=== PATIENT | female | born 1945 | race Caucasian/White ===

== ENCOUNTER 2017-01-25 20:13 | Inpatient (IN) | payer MEDICARE, OTHER ==
[~2017-01-25] VITALS: Ht 165.1 cm; Wt 98.1 kg
[~2017-01-25 20:13] MED LIST: AZIL1TAB2 PO; NABU750T PO; PARO20TA3 PO; PIOG30TA3 PO; TRIA1CAP3 PO
[2017-01-25 20:30] VITALS: BP 141/76
[2017-01-25 20:49] VITALS: BP 141/76
--- NOTE | 2017-01-25 20:52 | PDOC ---
GENERAL General: see dictated H&P. Problems: VITAL SIGNS Vital Signs: Vital Signs Date Time Temp Pulse Resp B/P (MAP) Pulse Ox O2 Delivery O2 Flow Rate FiO2 01/25/17 20:49 97.9 109 18 141/76 (97) 95 Room Air 97.9 ALLERGIES Allergies: Allergies Coded Allergies Type Severity Reaction Last Updated Verified Iodinated Contrast Media - Oral and Allergy Severe 12/31/13 Yes Uncoded Allergies Type Severity Reaction Last Updated Verified bandaids Allergy Unknown 11/12/14 ELIZABETH MEHTA MD January 25, 2017 20:52
[2017-01-25] MEDS ORDERED: CALCIUM CARBONATE 500 MG TAB.CHEW PO PRN (21:15)
[2017-01-25] MEDS ORDERED: ONDANSETRON PF 4 MG/2 ML VIAL. IV PRN (21:15)
[2017-01-25] MEDS: ONDANSETRON ODT 4 MG TAB.RAPDIS. PO PRN (21:31)
[2017-01-25 21:42] LABS: BASO % 0 % (0-3); EOS % 0 % (0-3); HEMATOCRIT 41.6 % (36.0-47.0); HEMOGLOBIN 14.1 g/dL (12.0-15.5); LYMPH # 0.4 x10^3/uL (1.0-4.8); LYMPH % 2 % (24-48); MEAN CORPUSCULAR HEMOGLOBIN 32 pg (25-35); MEAN CORPUSCULAR HGB CONC 34 g/dL (31-37); MEAN CORPUSCULAR VOLUME 95 fL (79-100); MONO % 5 % (0-9); NEUT % 93 % (31-73); PLATELET COUNT 223 x10^3/uL (140-400); WHITE BLOOD COUNT 23.7 x10^3/uL (4.0-11.0)
[2017-01-25 21:58] LABS: ALBUMIN 2.6 g/dL (3.4-5.0); ALBUMIN/GLOBULIN RATIO 0.6 (1.0-1.7); CALCIUM 8.8 mg/dL (8.5-10.1); CREATININE 1.6 mg/dL (0.6-1.0); GFR 31.9; TOTAL BILIRUBIN 0.6 mg/dL (0.2-1.0); TOTAL PROTEIN 7.1 g/dL (6.4-8.2)
[2017-01-25 22:11] LABS: POTASSIUM 2.6 mmol/L (3.5-5.1)
[2017-01-25 22:17] LABS: PLT ESTIMATE ADEQUATE (ADEQUATE)
[2017-01-25 22:18] LABS: TOXIC GRANULATION SLIGHT
[2017-01-25 22:44] LABS: BILIRUBIN,URINE SMALL (NEG); GLUCOSE,URINE NEGATIVE (NEG); NITRITE,URINE NEGATIVE (NEG); PH,URINE 5.5; PROTEIN,URINE 100 mg/dL (NEG-TRACE); UROBILINOGEN,URINE 0.2 mg/dL (0.2 mg/dL)
[2017-01-25 22:53] LABS: BACTERIA,URINE MANY /HPF (0-FEW); RBC,URINE 0 /HPF (0-2); SQUAMOUS EPITHELIAL CELL,UR FEW /LPF
[2017-01-25 23:00] VITALS: BP 122/59
[2017-01-25] MEDS ORDERED: IV 1/2 NORMAL SALINE 1,000 ML IV SCH (23:00)
[2017-01-26] MEDS: POTASSIUM CHLORIDE 40 MEQ in IV 1/2 NORMAL SALINE 1,000 ML IV SCH ×3 (02:14→19:52)
[2017-01-26 03:00] VITALS: BP 130/63
[2017-01-26 05:11] LABS: CALCIUM 8.5 mg/dL (8.5-10.1); CREATININE 1.6 mg/dL (0.6-1.0); GFR 31.9
[2017-01-26 05:14] LABS: POTASSIUM 2.9 mmol/L (3.5-5.1)
[2017-01-26] MEDS: ONDANSETRON ODT 4 MG TAB.RAPDIS. PO PRN (06:33)
[2017-01-26 07:39] VITALS: BP 126/74
[2017-01-26] MEDS ORDERED: VANCOMYCIN 1.25 GM in IV NORMAL SALINE 250ML 250 ML IV ONE (08:30)
[2017-01-26] MEDS: TRIAMTERENE/HCTZ 37.5/25MG TABLET. PO SCH (08:52)
[2017-01-26] MEDS: PIOGLITAZONE 15 MG TABLET. PO SCH (08:53)
[2017-01-26 10:34] VITALS: BP 128/77
--- NOTE | 2017-01-26 10:55 | PDOC ---
Infectious Disease Note ROS ROS GEN: Denies fevers, chills, sweats HEENT: Denies blurred vision, sore throat CV: Denies chest pain RESP: Denies shortness of air, cough GI: Denies n/v/d NEURO: Denies confusion, dizziness MSK: Denies weakness, joint pain/swelling Vital Sign Vital Signs Vital Signs Date Time Temp Pulse Resp B/P (MAP) Pulse Ox O2 Delivery O2 Flow Rate FiO2 01/26/17 08:00 Room Air 01/26/17 07:39 100.4 111 18 126/74 (91) 96 100.4 Physical Exam PHYSICAL EXAM GENERAL: NAD, Alert HEENT: PERRL, OC/OP NECK: Supple, no JVD, no LN LUNGS: Clear HEART: S1S2, no gallop, no murmur ABD: Soft, NT, no organomegaly, no rebound EXT: No edema, no cyanosis ROUND UP RING HAND: Alert, oriented x 3, no focal neurologic deficit SKIN: No rash IV: ok Labs Lab Laboratory Tests Test 01/25/17 21:30 01/25/17 21:31 01/25/17 22:32 01/26/17 03:45 White Blood Count 23.7 x10^3/uL (4.0-11.0) Red Blood Count 4.40 x10^6/uL (3.50-5.40) Hemoglobin 14.1 g/dL (12.0-15.5) Hematocrit 41.6 % (36.0-47.0) Mean Corpuscular Volume 95 fL (79-100) Mean Corpuscular Hemoglobin 32 pg (25-35) Mean Corpuscular Hemoglobin Concent 34 g/dL (31-37) Red Cell Distribution Width 13.0 % (11.5-14.5) Platelet Count 223 x10^3/uL (140-400) Neutrophils (%) (Auto) 93 % (31-73) Lymphocytes (%) (Auto) 2 % (24-48) Monocytes (%) (Auto) 5 % (0-9) Eosinophils (%) (Auto) 0 % (0-3) Basophils (%) (Auto) 0 % (0-3) Neutrophils # (Auto) 22.0 x10^3uL (1.8-7.7) Lymphocytes # (Auto) 0.4 x10^3/uL (1.0-4.8) Monocytes # (Auto) 1.2 x10^3/uL (0.0-1.1) Eosinophils # (Auto) 0.1 x10^3/uL (0.0-0.7) Basophils # (Auto) 0.0 x10^3/uL (0.0-0.2) Segmented Neutrophils % 57 % (35-66) Band Neutrophils % 31 % (0-9) Lymphocytes % 2 % (24-48) Monocytes % 10 % (0-10) Toxic Granulation Slight Dohle Bodies Present Platelet Estimate Adequate (ADEQUATE) Sodium Level 132 mmol/L (136-145) 134 mmol/L (136-145) Potassium Level 2.6 mmol/L (3.5-5.1) 2.9 mmol/L (3.5-5.1) Chloride Level 93 mmol/L (98-107) 94 mmol/L (98-107) Carbon Dioxide Level 26 mmol/L (21-32) 27 mmol/L (21-32) Anion Gap 13 (6-14) 13 (6-14) Blood Urea Nitrogen 24 mg/dL (7-20) 26 mg/dL (7-20) Creatinine 1.6 mg/dL (0.6-1.0) 1.6 mg/dL (0.6-1.0) Estimated GFR (Cockcroft-Gault) 31.9 31.9 BUN/Creatinine Ratio 15 (6-20) Glucose Level 173 mg/dL (70-99) 155 mg/dL (70-99) Calcium Level 8.8 mg/dL (8.5-10.1) 8.5 mg/dL (8.5-10.1) Total Bilirubin 0.6 mg/dL (0.2-1.0) Aspartate Amino Transf (AST/SGOT) 19 U/L (15-37) Alanine Aminotransferase (ALT/SGPT) 26 U/L (14-59) Alkaline Phosphatase 103 U/L (46-116) Total Protein 7.1 g/dL (6.4-8.2) Albumin 2.6 g/dL (3.4-5.0) Albumin/Globulin Ratio 0.6 (1.0-1.7) Amylase Level 28 U/L (25-115) Lipase 81 U/L (73-393) Glucose (Fingerstick) 172 mg/dL (70-99) Urine Collection Type Unknown Urine Color Margarita Urine Clarity Clear Urine pH 5.5 Urine Specific [place] 1.020 Urine Protein 100 mg/dL (NEG-TRACE) Urine Glucose (UA) Negative mg/dL (NEG) Urine Ketones (Stick) Trace mg/dL (NEG) Urine Blood Negative (NEG) Urine Nitrite Negative (NEG) Urine Bilirubin Small (NEG) Urine Urobilinogen Dipstick 0.2 mg/dL (0.2 mg/dL) Urine Leukocyte Esterase Small (NEG) Urine RBC 0 /HPF (0-2) Urine WBC 5-10 /HPF (0-4) Urine Squamous Epithelial Cells Few /LPF Urine Amorphous Sediment Present /HPF Urine Bacteria Many /HPF (0-FEW) Urine Hyaline Casts Moderate /HPF Urine Granular Casts Few /HPF Urine Mucus Mod /LPF Test 01/26/17 07:42 Glucose (Fingerstick) 155 mg/dL (70-99) Objective Assessment ? UTI Loose stool Fever Leukocytosis Pancreatic lesion Plan Plan of Care recent abx exposure - Check C-diff Add po vanc Cont IV vancZosyn F/u CT scan F/u labs and cults Thank you # [id number] MARKO CROWELL MD Jan 26, 2017 10:55
[2017-01-26 11:32] LABS: BASO % 0 % (0-3); EOS % 0 % (0-3); HEMATOCRIT 42.2 % (36.0-47.0); LYMPH # 0.7 x10^3/uL (1.0-4.8); LYMPH % 3 % (24-48); MEAN CORPUSCULAR HEMOGLOBIN 32 pg (25-35); MEAN CORPUSCULAR HGB CONC 33 g/dL (31-37); MEAN CORPUSCULAR VOLUME 96 fL (79-100); MONO % 6 % (0-9); NEUT % 91 % (31-73); PLATELET COUNT 240 x10^3/uL (140-400); RED BLOOD COUNT 4.38 x10^6/uL (3.50-5.40); RED CELL DISTRIBUTION WIDTH 13.2 % (11.5-14.5); WHITE BLOOD COUNT 24.3 x10^3/uL (4.0-11.0)
[2017-01-26] MEDS: PIPERACILLIN/TAZOBACTAM 3.375 GM in IV NORMAL SALINE 50ML 50 ML IV SCH ×3 (11:46→23:38)
[2017-01-26] MEDS: VANCOMYCIN 125 MG/2.5 ML ORAL SOLUTION. PO SCH ×3 (11:46→19:51)
[2017-01-26 12:04] LABS: ANISOCYTOSIS SLIGHT; PLT ESTIMATE ADEQUATE (ADEQUATE)
--- NOTE | 2017-01-26 13:21 | HP ---
ADMIT DATE: 01/25/2017 CHIEF COMPLAINT AND HISTORY OF PRESENT ILLNESS: This 72-year-old white female who is well known to me who follows up in the office. The patient was admitted after a week or more worth of illness which included just generalized feeling worse, fevers and chills, some respiratory symptoms early on and seen in the urgent care and started on steroids and Augmentin. She ____ continuing to feel very crummy also developing a lot of upper abdominal discomfort within the last 24 hours or so prior to admission. [place] office was [address] with a left shift and she had acute renal failure with a creatinine up to 1.661, last checked was 0.9, was felt as though she needed admission to the hospital to further evaluate what was going on with the length of the stay and no response to any sort of outpatient treatment and this was accomplished. PAST MEDICAL HISTORY: Remarkable for hypertension, depression, osteoarthritis, diabetes. She has a history of pancreatic cyst that has been deemed to be benign over followup over time. She did have an admission 3 years ago for sepsis. MEDICATIONS: Brought with the patient, listed on the computer and have been addressed. ALLERGIES: THE PATIENT IS ALLERGIC TO IODINE, BAND-AIDS. SOCIAL HISTORY: She is retired, lives at home with her , nonsmoker, does not use drugs, does not abuse alcohol. FAMILY HISTORY: Positive for cancer and diabetes. REVIEW OF SYSTEMS: As mentioned above. PHYSICAL EXAMINATION: GENERAL: She is a well-developed, well-nourished white female who appears ill. VITAL SIGNS: Stable in the office and she is afebrile. HEAD, EYES, EARS AND THROAT: Unremarkable. Some dryness of mucous membranes. NECK: Supple without adenopathy or thyromegaly. CHEST: Clear to auscultation and percussion. HEART: Slightly tachycardic without S3, S4 or murmur. ABDOMEN: Soft with diffuse epigastric tenderness, no hepatosplenomegaly or masses are appreciated. EXTREMITIES: Without cyanosis, clubbing or edema. NEUROLOGIC: She is intact. IMPRESSION: ____ as noted above with leukocytosis, acute renal failure and abdominal pain. PLAN: The patient has been admitted. Labs will be checked. CT abdomen and pelvis will be done. Infectious Disease will be asked to see her in consultation. The patient will be monitored, managed and treated appropriately. ELIZABETH MEHTA MD DR: Kelly JOB#: [id number] / [id number]
--- NOTE | 2017-01-26 13:47 | RAD ---
Indication nausea abdominal pain. Axial images through the abdomen and pelvis were obtained. Note is made of a previous examination just over 3 years ago. The lung bases are clear. No abnormality is seen associated with the liver or spleen. The gallbladder appears grossly normal. Known low-density mass with some associated calcifications at the head of the pancreas is reproduced. The mass has increased slightly in size relative to the previous exam. Previously it measured approximately 3.5 x 2.7 cm. Corresponding measurements are now approximately 4.5 x 3.5. Neoplastic disease is felt unlikely accounting for the mass given the 3 year interval but a slow-growing neoplasm cannot be entirely excluded. Additional evaluation could be obtained with MRI if clinically warranted. The adrenal glands appear unremarkable. There are punctate small calculi seen associated with the kidneys. A dominant renal mass is not seen. There are a few small retroperitoneal lymph nodes. These are likely incidental and appear similar to the previous study. There is considerable thickening involving the cecum and ascending colon. The findings are compatible with colitis. Inflammation or ischemia should be considered. The transverse colon, descending colon and sigmoid colon appear unremarkable. An additional finding in the pelvis is not seen. There are probable kyphoplasty changes associated with L1. The appearance is similar to the previous exam IMPRESSION: Findings involving the right colon compatible with colitis. Known mass associated with the head of the pancreas is likely benign but it does appear slightly larger than on the study 3 years ago.
[2017-01-26 15:05] VITALS: BP 145/76
[2017-01-26] MEDS: VANCOMYCIN PER PHARMACY MC PRN ×2 (15:46→15:51)
[2017-01-26 19:00] VITALS: BP 122/60
--- NOTE | 2017-01-26 20:41 | PDOC ---
GENERAL General: vss with tmax of 100.6. feeling even worse this am. leukocytosis of 24K with bandemia. creatinine increased to 1.6. K+ up to 2.9 with ongoing replacement. ID help appreciated. blood cultures obtained and iv antibiotics ongoing. very sick. abdomen soft, chest clear, and heart slightly tachycardic. continue same otherwise. Problems: VITAL SIGNS Vital Signs: Vital Signs Date Time Temp Pulse Resp B/P (MAP) Pulse Ox O2 Delivery O2 Flow Rate FiO2 01/26/17 15:05 98.8 117 18 145/76 (99) 97 Room Air 98.8 I & O I & O Intake and Output 01/26/17 07:00 Output Total 200 ml Balance -200 ml Output Urine Total 200 ml ALLERGIES Allergies: Allergies Coded Allergies Type Severity Reaction Last Updated Verified Iodinated Contrast Media - Oral and Allergy Severe 12/31/13 Yes Uncoded Allergies Type Severity Reaction Last Updated Verified bandaids Allergy Unknown 11/12/14 MEDS Medications: Current Medications Medications (Trade) Dose Ordered Sig/Anitra Start Time Stop Time Status Last Admin Dose Admin Calcium Carbonate/ Glycine (Tums) 500 mg PRN Q4HRS PRN 01/25/17 21:15 Ondansetron HCl (Zofran Odt) 4 mg PRN Q4HRS PRN 01/25/17 21:15 01/26/17 06:33 4 MG Ondansetron HCl (Zofran) 4 mg PRN Q4HRS PRN 01/25/17 21:15 01/26/17 13:42 4 MG Pioglitazone HCl (Actos) 30 mg DAILY 01/26/17 09:00 01/26/17 08:53 30 MG Piperacillin Sod/ Tazobactam Sod 3.375 gm/Sodium Chloride 50 ml @ 100 mls/hr Q6HRS 01/26/17 12:00 01/26/17 17:38 100 MLS/HR Potassium Chloride 40 meq/ Sodium Chloride 1,020 ml @ 100 mls/hr [id number] 01/25/17 22:30 01/26/17 17:39 100 MLS/HR Sodium Chloride 1,000 ml @ 100 mls/hr Q10H 01/25/17 23:00 01/25/17 23:00 DC Triamterene/HCTZ (Maxzide 37.5/ 25mg) 1 tab DAILY 01/26/17 09:00 01/26/17 08:52 1 TAB Vancomycin HCl 1 each 1X ONCE 01/28/17 05:30 01/28/17 05:31 Vancomycin HCl (Vanco Per Pharmacy) 1 each PRN DAILY PRN 01/26/17 15:45 01/26/17 15:51 1 EACH Vancomycin HCl 1.25 gm/Sodium Chloride 250 ml @ 166.667 mls/hr 1X ONCE 01/26/17 08:30 01/26/17 09:59 DC 01/26/17 09:53 166.667 MLS/HR Vancomycin HCl 1.5 gm/Sodium Chloride 500 ml @ 250 mls/hr Q24H 01/27/17 06:00 LAB Lab: Laboratory Tests Test 01/25/17 21:30 01/25/17 21:31 01/25/17 22:32 01/26/17 03:45 White Blood Count 23.7 x10^3/uL (4.0-11.0) 24.3 x10^3/uL (4.0-11.0) Red Blood Count 4.40 x10^6/uL (3.50-5.40) 4.38 x10^6/uL (3.50-5.40) Hemoglobin 14.1 g/dL (12.0-15.5) 14.0 g/dL (12.0-15.5) Hematocrit 41.6 % (36.0-47.0) 42.2 % (36.0-47.0) Mean Corpuscular Volume 95 fL (79-100) 96 fL (79-100) Mean Corpuscular Hemoglobin 32 pg (25-35) 32 pg (25-35) Mean Corpuscular Hemoglobin Concent 34 g/dL (31-37) 33 g/dL (31-37) Red Cell Distribution Width 13.0 % (11.5-14.5) 13.2 % (11.5-14.5) Platelet Count 223 x10^3/uL (140-400) 240 x10^3/uL (140-400) Neutrophils (%) (Auto) 93 % (31-73) 91 % (31-73) Lymphocytes (%) (Auto) 2 % (24-48) 3 % (24-48) Monocytes (%) (Auto) 5 % (0-9) 6 % (0-9) Eosinophils (%) (Auto) 0 % (0-3) 0 % (0-3) Basophils (%) (Auto) 0 % (0-3) 0 % (0-3) Neutrophils # (Auto) 22.0 x10^3uL (1.8-7.7) 22.2 x10^3uL (1.8-7.7) Lymphocytes # (Auto) 0.4 x10^3/uL (1.0-4.8) 0.7 x10^3/uL (1.0-4.8) Monocytes # (Auto) 1.2 x10^3/uL (0.0-1.1) 1.4 x10^3/uL (0.0-1.1) Eosinophils # (Auto) 0.1 x10^3/uL (0.0-0.7) 0.1 x10^3/uL (0.0-0.7) Basophils # (Auto) 0.0 x10^3/uL (0.0-0.2) 0.0 x10^3/uL (0.0-0.2) Segmented Neutrophils % 57 % (35-66) 66 % (35-66) Band Neutrophils % 31 % (0-9) 20 % (0-9) Lymphocytes % 2 % (24-48) 6 % (24-48) Monocytes % 10 % (0-10) 6 % (0-10) Toxic Granulation Slight Dohle Bodies Present Platelet Estimate Adequate (ADEQUATE) Adequate (ADEQUATE) Sodium Level 132 mmol/L (136-145) 134 mmol/L (136-145) Potassium Level 2.6 mmol/L (3.5-5.1) 2.9 mmol/L (3.5-5.1) Chloride Level 93 mmol/L (98-107) 94 mmol/L (98-107) Carbon Dioxide Level 26 mmol/L (21-32) 27 mmol/L (21-32) Anion Gap 13 (6-14) 13 (6-14) Blood Urea Nitrogen 24 mg/dL (7-20) 26 mg/dL (7-20) Creatinine 1.6 mg/dL (0.6-1.0) 1.6 mg/dL (0.6-1.0) Estimated GFR (Cockcroft-Gault) 31.9 31.9 BUN/Creatinine Ratio 15 (6-20) Glucose Level 173 mg/dL (70-99) 155 mg/dL (70-99) Calcium Level 8.8 mg/dL (8.5-10.1) 8.5 mg/dL (8.5-10.1) Total Bilirubin 0.6 mg/dL (0.2-1.0) Aspartate Amino Transf (AST/SGOT) 19 U/L (15-37) Alanine Aminotransferase (ALT/SGPT) 26 U/L (14-59) Alkaline Phosphatase 103 U/L (46-116) Total Protein 7.1 g/dL (6.4-8.2) Albumin 2.6 g/dL (3.4-5.0) Albumin/Globulin Ratio 0.6 (1.0-1.7) Amylase Level 28 U/L (25-115) Lipase 81 U/L (73-393) Glucose (Fingerstick) 172 mg/dL (70-99) Urine Collection Type Unknown Urine Color Margarita Urine Clarity Clear Urine pH 5.5 Urine Specific [place] 1.020 Urine Protein 100 mg/dL (NEG-TRACE) Urine Glucose (UA) Negative mg/dL (NEG) Urine Ketones (Stick) Trace mg/dL (NEG) Urine Blood Negative (NEG) Urine Nitrite Negative (NEG) Urine Bilirubin Small (NEG) Urine Urobilinogen Dipstick 0.2 mg/dL (0.2 mg/dL) Urine Leukocyte Esterase Small (NEG) Urine RBC 0 /HPF (0-2) Urine WBC 5-10 /HPF (0-4) Urine Squamous Epithelial Cells Few /LPF Urine Amorphous Sediment Present /HPF Urine Bacteria Many /HPF (0-FEW) Urine Hyaline Casts Moderate /HPF Urine Granular Casts Few /HPF Urine Mucus Mod /LPF Metamyelocytes % 2 % (0-0) Anisocytosis Slight Test 01/26/17 07:42 01/26/17 11:34 01/26/17 16:46 Glucose (Fingerstick) 155 mg/dL (70-99) 153 mg/dL (70-99) 137 mg/dL (70-99) ELIZABETH MEHTA MD Jan 26, 2017 20:41
[2017-01-26 23:00] VITALS: BP 134/59
[2017-01-27] VITALS (7 sets, daily range): BP systolic 105–126; BP diastolic 56–68
--- NOTE | 2017-01-27 02:00 | CONS ---
DATE OF CONSULTATION: 01/26/2017 PATIENT'S ROOM: 506. REQUESTING PHYSICIAN: Dr. Braxton Boo. REASON FOR CONSULTATION: Leukocytosis, nausea, and acute renal failure. HISTORY OF PRESENT ILLNESS: The patient is a pleasant 72-year-old female with history of diabetes as well as morbid obesity. She states in late November or early December, she was suffering from cough and was given some Augmentin as well as some steroids. She then went on an 18-day trip to [facility] and [facility] and did fairly well, although she continued to have a cough. She returned home approximately the or , and then about Monday, approximately or 18 of November, she had abdominal pain, felt like she had the flu. She had nausea, vomiting and she has diarrhea as well. She was also diagnosed with ear infection, received more Augmentin as well as some azithromycin and some steroids. Over the next several days, she began to feel a little bit better, but then on 01/23/2017. She awakened and has had some swelling in her eye and she received some eyedrops as well as some eardrops. Of note, she had been treated for urinary tract infection with Bactrim about 2 months ago and the Bactrim caused her to have some nausea. She continued to have some abdominal pain as well as some subjective sweats. She followed up with Dr. Boo yesterday and was directly admitted. She has had temperatures up to 100.6. Nursing is reporting some loose stools. Her white blood cell count was elevated at 23.7 with 31% bands. Blood cultures were obtained. She has been started on vancomycin and Zosyn this morning. Of note, she had had a previous CT scan 3 years ago on 01/03/2017 that showed a 3.4 x 2.5 cm hypodense lesion at the junction of the head and body of the pancreas as well as ____ appearance of the gallbladder and kidney stones without evidence of obstruction. She was to follow up with ____ at , but has not for several years. PAST MEDICAL HISTORY: Positive for morbid obesity, history of kidney stones, UTIs, hypertension, depression, osteoarthritis, diabetes and pancreatic lesion. REVIEW OF SYSTEMS: Otherwise negative except for mentioned above. ALLERGIES: LISTED IVP DYE CAUSING ANAPHYLACTIC TYPE REACTION. SOCIAL HISTORY: She lives at home. She is . No tobacco. 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 FAMILY HISTORY: Positive for cancer as well as diabetes. CURRENT MEDICATIONS: IV vancomycin and Zosyn have been started this morning. Also on Tums, Zofran, Actos, Maxzide. Other meds are available and reviewed in the chart. PHYSICAL EXAMINATION: VITAL SIGNS: Temperature is 100.4, pulse 111, respirations 18, blood pressure 126/74, satting 96% on room air. CONSTITUTIONAL: She is very pleasant. She is cooperative. She is obese. She is in no acute distress. HEENT: Pupils are equal and reactive. She has normal conjunctivae. Oral cavity, oropharynx is clear. NECK: Supple. Good range of motion. LUNGS: Decreased in the bases. HEART: S1, S2. ABDOMEN: Obese, soft. There is no guarding. There is no rebound. EXTREMITIES: No clubbing, cyanosis or gross edema. SKIN: Warm to touch without signs of rash. NEUROLOGIC: She is nonfocal, moves all extremities. PSYCHIATRIC: Affect is pleasant. LABORATORY DATA: White count 23.7, hemoglobin 14.1, platelets of 223 with 31 bands, 57 segs. This is from 01/25/2017. Creatinine of 1.6, glucose of 155. Sodium 134. She had normal liver function study tests. Amylase and lipase were normal. Urinalysis, few squamous, 5-10 wbc's, leukocyte esterase is small, nitrite negative and many bacteria were seen. IMPRESSION: 1. Question urinary tract infection. 2. Loose stools. 3. Fever. 4. Leukocytosis. 5. Pancreatic lesion. PLAN: She has had recent antibiotic exposure as mentioned above. We will need to check C. diff or isolate her. Begin p.o. vancomycin. Continue IV vancomycin and Zosyn. We will follow up on CT scan as well as labs and cultures. Thank you for allowing me to participate in the patient's care. If you have any questions, please do not hesitate to contact me. MARKO CROWELL MD DR: COURTNEY/ariela JOB#: [id number] / [id number]
[2017-01-27] MEDS: PIPERACILLIN/TAZOBACTAM 3.375 GM in IV NORMAL SALINE 50ML 50 ML IV SCH (05:27)
[2017-01-27] MEDS ORDERED: VANCOMYCIN 1.5 GM in IV NORMAL SALINE 500ML BAG 500 ML IV SCH (06:00)
[2017-01-27] MEDS: POTASSIUM CHLORIDE 40 MEQ in IV 1/2 NORMAL SALINE 1,000 ML IV SCH ×2 (06:14→21:31)
--- NOTE | 2017-01-27 08:18 | PDOC ---
GENERAL General: vss and temp curve better. still little tachycardic. annorexic. exam stable. c.diff positive so will dc other antibiotics and watch. recheck cbc, renal function, and K+ am. otherwise same. right sided colitis on ct. pancreatic cyst is old and has been worked up extensively in past. Problems: VITAL SIGNS Vital Signs: Vital Signs Date Time Temp Pulse Resp B/P (MAP) Pulse Ox O2 Delivery O2 Flow Rate FiO2 01/27/17 03:00 98.4 107 18 126/59 (81) 95 Room Air 98.4 I & O I & O Intake and Output 01/27/17 06:59 Intake Total 2400 ml Output Total 2500 ml Balance -100 ml Intake Oral 1120 ml IV Total 1280 ml Output Urine Total 800 ml Stool Total 1700 ml # Voids 3 ALLERGIES Allergies: Allergies Coded Allergies Type Severity Reaction Last Updated Verified Iodinated Contrast Media - Oral and Allergy Severe 12/31/13 Yes Uncoded Allergies Type Severity Reaction Last Updated Verified bandaids Allergy Unknown 11/12/14 MEDS Medications: Current Medications Medications (Trade) Dose Ordered Sig/Anitra Start Time Stop Time Status Last Admin Dose Admin Calcium Carbonate/ Glycine (Tums) 500 mg PRN Q4HRS PRN 01/25/17 21:15 Ondansetron HCl (Zofran Odt) 4 mg PRN Q4HRS PRN 01/25/17 21:15 01/26/17 06:33 4 MG Ondansetron HCl (Zofran) 4 mg PRN Q4HRS PRN 01/25/17 21:15 01/26/17 13:42 4 MG Pioglitazone HCl (Actos) 30 mg DAILY 01/26/17 09:00 01/26/17 08:53 30 MG Piperacillin Sod/ Tazobactam Sod 3.375 gm/Sodium Chloride 50 ml @ 100 mls/hr Q6HRS 01/26/17 12:00 01/27/17 05:27 100 MLS/HR Potassium Chloride 40 meq/ Sodium Chloride 1,020 ml @ 100 mls/hr [id number] 01/25/17 22:30 01/27/17 06:14 100 MLS/HR Sodium Chloride 1,000 ml @ 100 mls/hr Q10H 01/25/17 23:00 01/25/17 23:00 DC Triamterene/HCTZ (Maxzide 37.5/ 25mg) 1 tab DAILY 01/26/17 09:00 01/26/17 08:52 1 TAB Vancomycin HCl 1 each 1X ONCE 01/28/17 05:30 01/28/17 05:31 Vancomycin HCl (Vanco Per Pharmacy) 1 each PRN DAILY PRN 01/26/17 15:45 01/26/17 15:51 1 EACH Vancomycin HCl 1.25 gm/Sodium Chloride 250 ml @ 166.667 mls/hr 1X ONCE 01/26/17 08:30 01/26/17 09:59 DC 01/26/17 09:53 166.667 MLS/HR Vancomycin HCl 1.5 gm/Sodium Chloride 500 ml @ 250 mls/hr Q24H 01/27/17 06:00 01/27/17 05:26 250 MLS/HR LAB Lab: Laboratory Tests Test 01/26/17 11:15 01/26/17 11:34 01/26/17 16:46 01/26/17 20:35 Clostridium difficile Toxin (PCR) Positive (Negative) Glucose (Fingerstick) 153 mg/dL (70-99) 137 mg/dL (70-99) 125 mg/dL (70-99) ELIZABETH MEHTA MD Jan 27, 2017 08:18
[2017-01-27 08:23] LABS: CALCIUM 7.7 mg/dL (8.5-10.1); CREATININE 1.7 mg/dL (0.6-1.0); GFR 29.7; POTASSIUM 3.5 mmol/L (3.5-5.1)
[2017-01-27] MEDS: TRIAMTERENE/HCTZ 37.5/25MG TABLET. PO SCH (08:53)
[2017-01-27] MEDS: PIOGLITAZONE 15 MG TABLET. PO SCH (08:53)
[2017-01-27] MEDS: VANCOMYCIN 125 MG/2.5 ML ORAL SOLUTION. PO SCH ×4 (08:53→21:31)
--- NOTE | 2017-01-27 11:47 | PDOC ---
Infectious Disease Note Subjective Subjective Feeling better at the moment C/o abdominal cramping earlier + diarrhea, less frequent Tolerating clear liquids, denies N/V No fever last 24 hours ROS ROS GEN: Denies chills, sweats CV: Denies chest pain RESP: Denies shortness of air, cough Vital Sign Vital Signs Vital Signs Date Time Temp Pulse Resp B/P (MAP) Pulse Ox O2 Delivery O2 Flow Rate FiO2 01/27/17 08:00 Room Air 01/27/17 03:00 98.4 107 18 126/59 (81) 95 98.4 Physical Exam PHYSICAL EXAM GENERAL: Up in chair, relaxed appearance HEENT: OC/OP clear LUNGS: Clear HEART: S1S2, no gallop, no murmur ABD: Obese, BS present, soft, NT EXT: No edema, no cyanosis 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, oriented x 3, no focal neurologic deficit SKIN: No rash IV: ok Labs Lab Laboratory Tests Test 01/26/17 16:46 01/26/17 20:35 01/27/17 07:50 01/27/17 11:05 Glucose (Fingerstick) 137 mg/dL (70-99) 125 mg/dL (70-99) 141 mg/dL (70-99) Sodium Level 132 mmol/L (136-145) Potassium Level 3.5 mmol/L (3.5-5.1) Chloride Level 95 mmol/L (98-107) Carbon Dioxide Level 26 mmol/L (21-32) Anion Gap 11 (6-14) Blood Urea Nitrogen 23 mg/dL (7-20) Creatinine 1.7 mg/dL (0.6-1.0) Estimated GFR (Cockcroft-Gault) 29.7 Glucose Level 158 mg/dL (70-99) Calcium Level 7.7 mg/dL (8.5-10.1) CT ABD PEL W/ORAL CONTRST ONLY IMPRESSION: Findings involving the right colon compatible with colitis. Known mass associated with the head of the pancreas is likely benign but it does appear slightly larger than on the study 3 years ago. Micro BLOOD CULTURE Preliminary NO GROWTH AFTER 1 DAY Objective Assessment Loose stool/diarrhea. C. diff colitis 01/26 ? UTI Fever, better Leukocytosis Pancreatic lesion Plan Plan of Care po vanc F/u am labs and cults Maintain hydration Contact isolation Attending Co-Sign The patient was seen and interviewed as well as examined at the bedside. The chart was reviewed. The case was discussed. Agree with the plan of care. BETO GEE APRN Jan 27, 2017 11:47 DAGOBERTO MOONEY MD Jan 27, 2017 15:18
[2017-01-27] MEDS: NEOMYCIN/POLYMYXIN/HC OTIC SUSPENSION 10ML BOTTLE. AS SCH ×2 (18:00→21:31)
[2017-01-28] MEDS: POTASSIUM CHLORIDE 40 MEQ in IV 1/2 NORMAL SALINE 1,000 ML IV SCH (01:30)
[2017-01-28 03:06] VITALS: BP 129/63
[2017-01-28 04:07] LABS: BASO % 0 % (0-3); EOS % 1 % (0-3); HEMATOCRIT 38.4 % (36.0-47.0); HEMOGLOBIN 12.9 g/dL (12.0-15.5); LYMPH # 0.6 x10^3/uL (1.0-4.8); LYMPH % 4 % (24-48); MEAN CORPUSCULAR HEMOGLOBIN 32 pg (25-35); MEAN CORPUSCULAR HGB CONC 34 g/dL (31-37); MEAN CORPUSCULAR VOLUME 95 fL (79-100); MONO % 6 % (0-9); NEUT % 89 % (31-73); PLATELET COUNT 228 x10^3/uL (140-400); RED BLOOD COUNT 4.06 x10^6/uL (3.50-5.40); RED CELL DISTRIBUTION WIDTH 13.1 % (11.5-14.5); WHITE BLOOD COUNT 15.9 x10^3/uL (4.0-11.0)
[2017-01-28 04:28] LABS: ALBUMIN 2.3 g/dL (3.4-5.0); ALBUMIN/GLOBULIN RATIO 0.5 (1.0-1.7); CALCIUM 8.2 mg/dL (8.5-10.1); CREATININE 1.4 mg/dL (0.6-1.0); GFR 37.2; POTASSIUM 3.7 mmol/L (3.5-5.1); TOTAL BILIRUBIN 0.5 mg/dL (0.2-1.0); TOTAL PROTEIN 6.6 g/dL (6.4-8.2)
[2017-01-28 07:00] VITALS: BP 138/71
[2017-01-28] MEDS: VANCOMYCIN 125 MG/2.5 ML ORAL SOLUTION. PO SCH ×4 (08:54→20:46)
[2017-01-28] MEDS: PIOGLITAZONE 15 MG TABLET. PO SCH (08:54)
[2017-01-28] MEDS: NEOMYCIN/POLYMYXIN/HC OTIC SUSPENSION 10ML BOTTLE. AS SCH ×4 (08:54→20:46)
[2017-01-28] MEDS: TRIAMTERENE/HCTZ 37.5/25MG TABLET. PO SCH (08:54)
[2017-01-28 11:00] VITALS: BP 115/57
[2017-01-28] MEDS: DICLOFENAC SODIUM 1% TOPICAL GEL 100GM TUBE. TP SCH ×2 (12:24→20:45)
[2017-01-28 12:25] LABS: HEMATOCRIT 40.4 % (36.0-47.0); HEMOGLOBIN 13.4 g/dL (12.0-15.5); RED BLOOD COUNT 4.23 x10^6/uL (3.50-5.40); WHITE BLOOD COUNT 13.5 x10^3/uL (4.0-11.0)
[2017-01-28] MEDS ORDERED: NAPROXEN 500 MG TABLET PO ONE (12:30)
--- NOTE | 2017-01-28 12:40 | PDOC ---
Infectious Disease Note Subjective Subjective No further abdominal cramping or bloating Stools less frequent and starting to thicken No fever last 24 hours + multiple joint pains ROS ROS GEN: Denies chills, sweats CV: Denies chest pain RESP: Denies shortness of air, cough GI: Denies n/v Vital Sign Vital Signs Vital Signs Date Time Temp Pulse Resp B/P (MAP) Pulse Ox O2 Delivery O2 Flow Rate FiO2 01/28/17 11:00 97.5 91 16 115/57 (76) 96 Room Air 97.5 Physical Exam PHYSICAL EXAM GENERAL: Lying down, NAD HEENT: OC/OP clear LUNGS: Clear HEART: S1S2, no gallop, no murmur ABD: Obese, BS present, soft, NT EXT: No edema, no cyanosis 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, oriented x 3, no focal neurologic deficit SKIN: No rash IV: ok Labs Lab Laboratory Tests Test 01/28/17 03:23 01/28/17 08:20 01/28/17 12:05 White Blood Count 15.9 x10^3/uL (4.0-11.0) 13.5 x10^3/uL (4.0-11.0) Red Blood Count 4.06 x10^6/uL (3.50-5.40) 4.23 x10^6/uL (3.50-5.40) Hemoglobin 12.9 g/dL (12.0-15.5) 13.4 g/dL (12.0-15.5) Hematocrit 38.4 % (36.0-47.0) 40.4 % (36.0-47.0) Mean Corpuscular Volume 95 fL (79-100) 96 fL (79-100) Mean Corpuscular Hemoglobin 32 pg (25-35) 32 pg (25-35) Mean Corpuscular Hemoglobin Concent 34 g/dL (31-37) 33 g/dL (31-37) Red Cell Distribution Width 13.1 % (11.5-14.5) 13.0 % (11.5-14.5) Platelet Count 228 x10^3/uL (140-400) 223 x10^3/uL (140-400) Neutrophils (%) (Auto) 89 % (31-73) Lymphocytes (%) (Auto) 4 % (24-48) Monocytes (%) (Auto) 6 % (0-9) Eosinophils (%) (Auto) 1 % (0-3) Basophils (%) (Auto) 0 % (0-3) Neutrophils # (Auto) 14.2 x10^3uL (1.8-7.7) Lymphocytes # (Auto) 0.6 x10^3/uL (1.0-4.8) Monocytes # (Auto) 0.9 x10^3/uL (0.0-1.1) Eosinophils # (Auto) 0.2 x10^3/uL (0.0-0.7) Basophils # (Auto) 0.0 x10^3/uL (0.0-0.2) Sodium Level 130 mmol/L (136-145) Potassium Level 3.7 mmol/L (3.5-5.1) Chloride Level 95 mmol/L (98-107) Carbon Dioxide Level 25 mmol/L (21-32) Anion Gap 10 (6-14) Blood Urea Nitrogen 19 mg/dL (7-20) Creatinine 1.4 mg/dL (0.6-1.0) Estimated GFR (Cockcroft-Gault) 37.2 BUN/Creatinine Ratio 14 (6-20) Glucose Level 142 mg/dL (70-99) Calcium Level 8.2 mg/dL (8.5-10.1) Total Bilirubin 0.5 mg/dL (0.2-1.0) Aspartate Amino Transf (AST/SGOT) 22 U/L (15-37) Alanine Aminotransferase (ALT/SGPT) 24 U/L (14-59) Alkaline Phosphatase 95 U/L (46-116) Total Protein 6.6 g/dL (6.4-8.2) Albumin 2.3 g/dL (3.4-5.0) Albumin/Globulin Ratio 0.5 (1.0-1.7) Glucose (Fingerstick) 139 mg/dL (70-99) Uric Acid 5.9 mg/dL (2.6-6.0) Micro BLOOD CULTURE Preliminary NO GROWTH AFTER 2 DAY Objective Assessment Loose stool/diarrhea. C. diff colitis 01/26 ? UTI Fever, better Leukocytosis-trending down Pancreatic lesion Joint pain Plan Plan of Care po vanc Maintain hydration Contact isolation Attending Co-Sign The patient was seen and interviewed as well as examined at the bedside. The chart was reviewed. The case was discussed. Agree with the plan of care. BETO GEE APRN Jan 28, 2017 12:40 DAGOBERTO MOONEY MD Jan 28, 2017 13:10
[2017-01-28 14:52] VITALS: BP 108/62
[2017-01-28 19:00] VITALS: BP 130/69
[2017-01-28] MEDS: NAPROXEN 500 MG TABLET PO SCH (20:46)
[2017-01-28 23:29] VITALS: BP 117/66
[2017-01-29 00:08] LABS: ANTI-STREPTOLYSIN O 27.3 IU/mL (0.0-200.0); RHEUMATOID FACTOR 12.3 IU/mL (0.0-13.9)
[2017-01-29 03:57] VITALS: BP 110/71
[2017-01-29 07:00] VITALS: BP 119/67
[2017-01-29] MEDS: VANCOMYCIN 125 MG/2.5 ML ORAL SOLUTION. PO SCH (08:25)
[2017-01-29] MEDS: PIOGLITAZONE 15 MG TABLET. PO SCH (08:25)
[2017-01-29] MEDS: TRIAMTERENE/HCTZ 37.5/25MG TABLET. PO SCH (08:26)
[2017-01-29] MEDS: NAPROXEN 500 MG TABLET PO SCH (08:26)
[2017-01-29] MEDS: DICLOFENAC SODIUM 1% TOPICAL GEL 100GM TUBE. TP SCH (08:26)
[2017-01-29] MEDS: NEOMYCIN/POLYMYXIN/HC OTIC SUSPENSION 10ML BOTTLE. AS SCH (08:30)
--- NOTE | 2017-01-29 09:01 | PDOC ---
Infectious Disease Note Subjective Subjective No further abdominal cramping or bloating Stools less frequent with a thick consistency Appetite good No fever last 24 hours Less joint pain ROS ROS GEN: Denies chills, sweats CV: Denies chest pain RESP: Denies shortness of air, cough GI: Denies n/v Vital Sign Vital Signs Vital Signs Date Time Temp Pulse Resp B/P (MAP) Pulse Ox O2 Delivery O2 Flow Rate FiO2 01/29/17 07:00 96.4 82 16 119/67 (84) 97 Room Air 96.4 Physical Exam PHYSICAL EXAM GENERAL: Propped up in bed, smiling HEENT: OC/OP clear LUNGS: Clear HEART: S1S2 ABD: Obese, BS present, soft, NT EXT: No edema, no cyanosis 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, oriented x 3, no focal neurologic deficit SKIN: No rash No IV access Labs Lab Laboratory Tests Test 01/28/17 12:05 01/28/17 16:13 White Blood Count 13.5 x10^3/uL (4.0-11.0) Red Blood Count 4.23 x10^6/uL (3.50-5.40) Hemoglobin 13.4 g/dL (12.0-15.5) Hematocrit 40.4 % (36.0-47.0) Mean Corpuscular Volume 96 fL (79-100) Mean Corpuscular Hemoglobin 32 pg (25-35) Mean Corpuscular Hemoglobin Concent 33 g/dL (31-37) Red Cell Distribution Width 13.0 % (11.5-14.5) Platelet Count 223 x10^3/uL (140-400) Erythrocyte Sedimentation Rate 65 (0-25) Uric Acid 5.9 mg/dL (2.6-6.0) Rheumatoid Factor 12.3 IU/mL (0.0-13.9) Anti-Streptolysin O Antibody 27.3 IU/mL (0.0-200.0) Glucose (Fingerstick) 145 mg/dL (70-99) Micro BLOOD CULTURE Preliminary NO GROWTH AFTER 3 DAY Objective Assessment Loose stool/diarrhea. C. diff colitis 01/26 ? UTI Fever, better Leukocytosis-trending down Pancreatic lesion Joint pain Plan Plan of Care po vanc Maintain hydration Contact isolation Attending Co-Sign The patient was seen and interviewed as well as examined at the bedside. The chart was reviewed. The case was discussed. Agree with the plan of care. seen on 01/29 BETO GEE APRN Jan 29, 2017 09:01 DAGOBERTO MOONEY MD Jan 30, 2017 09:44
[2017-01-29 10:36] LABS: ALBUMIN 2.6 g/dL (3.4-5.0); ALBUMIN/GLOBULIN RATIO 0.6 (1.0-1.7); CALCIUM 8.5 mg/dL (8.5-10.1); GFR 24.6; POTASSIUM 3.3 mmol/L (3.5-5.1); TOTAL BILIRUBIN 0.6 mg/dL (0.2-1.0); TOTAL PROTEIN 6.9 g/dL (6.4-8.2)
--- NOTE | 2017-01-29 10:59 | PDOC ---
GENERAL General: see discharge summary Problems: VITAL SIGNS Vital Signs: Vital Signs Date Time Temp Pulse Resp B/P (MAP) Pulse Ox O2 Delivery O2 Flow Rate FiO2 01/29/17 08:00 Room Air 01/29/17 07:00 96.4 82 16 119/67 (84) 97 96.4 I & O I & O Intake and Output 01/29/17 07:00 Intake Total 1560 ml Balance 1560 ml Intake Oral 1560 ml # Voids 5 # Bowel Movements 3 ALLERGIES Allergies: Allergies Coded Allergies Type Severity Reaction Last Updated Verified Iodinated Contrast Media - Oral and Allergy Severe 12/31/13 Yes Uncoded Allergies Type Severity Reaction Last Updated Verified bandaids Allergy Unknown 11/12/14 MEDS Medications: Current Medications Medications (Trade) Dose Ordered Sig/Anitra Start Time Stop Time Status Last Admin Dose Admin Calcium Carbonate/ Glycine (Tums) 500 mg PRN Q4HRS PRN 01/25/17 21:15 Diclofenac Sodium (Voltaren) 1 shelby BID 01/28/17 12:30 01/29/17 08:26 1 SHELBY Naproxen (Naprosyn) 500 mg 1X ONCE 01/28/17 12:30 01/28/17 12:31 DC 01/28/17 12:23 500 MG Neomycin/ Polymyxin/ Hydrocortisone (Cortisporin Otic) 1 drop QID 01/27/17 18:00 01/29/17 08:30 1 DROP Ondansetron HCl (Zofran Odt) 4 mg PRN Q4HRS PRN 01/25/17 21:15 01/26/17 06:33 4 MG Ondansetron HCl (Zofran) 4 mg PRN Q4HRS PRN 01/25/17 21:15 01/26/17 13:42 4 MG Pioglitazone HCl (Actos) 30 mg DAILY 01/26/17 09:00 01/29/17 08:25 30 MG Piperacillin Sod/ Tazobactam Sod 3.375 gm/Sodium Chloride 50 ml @ 100 mls/hr Q6HRS 01/26/17 12:00 01/27/17 08:19 DC 01/27/17 05:27 100 MLS/HR Potassium Chloride 40 meq/ Sodium Chloride 1,020 ml @ 100 mls/hr [id number] 01/25/17 22:30 01/28/17 15:16 DC 01/27/17 21:31 100 MLS/HR Sodium Chloride 1,000 ml @ 100 mls/hr Q10H 01/25/17 23:00 01/25/17 23:00 DC Triamterene/HCTZ (Maxzide 37.5/ 25mg) 1 tab DAILY 01/26/17 09:00 01/29/17 08:26 1 TAB Vancomycin HCl 1 each 1X ONCE 01/28/17 05:30 01/28/17 05:31 Cancel Vancomycin HCl (Vanco Per Pharmacy) 1 each PRN DAILY PRN 01/26/17 15:45 01/27/17 08:20 DC 01/26/17 15:51 1 EACH Vancomycin HCl 1.25 gm/Sodium Chloride 250 ml @ 166.667 mls/hr 1X ONCE 01/26/17 08:30 01/26/17 09:59 DC 01/26/17 09:53 166.667 MLS/HR Vancomycin HCl 1.5 gm/Sodium Chloride 500 ml @ 250 mls/hr Q24H 01/27/17 06:00 01/27/17 08:19 DC 01/27/17 05:26 250 MLS/HR LAB Lab: Laboratory Tests Test 01/28/17 12:05 01/28/17 16:13 01/29/17 09:00 White Blood Count 13.5 x10^3/uL (4.0-11.0) Red Blood Count 4.23 x10^6/uL (3.50-5.40) Hemoglobin 13.4 g/dL (12.0-15.5) Hematocrit 40.4 % (36.0-47.0) Mean Corpuscular Volume 96 fL (79-100) Mean Corpuscular Hemoglobin 32 pg (25-35) Mean Corpuscular Hemoglobin Concent 33 g/dL (31-37) Red Cell Distribution Width 13.0 % (11.5-14.5) Platelet Count 223 x10^3/uL (140-400) Erythrocyte Sedimentation Rate 65 (0-25) Uric Acid 5.9 mg/dL (2.6-6.0) Rheumatoid Factor 12.3 IU/mL (0.0-13.9) Anti-Streptolysin O Antibody 27.3 IU/mL (0.0-200.0) Glucose (Fingerstick) 145 mg/dL (70-99) Sodium Level 134 mmol/L (136-145) Potassium Level 3.3 mmol/L (3.5-5.1) Chloride Level 98 mmol/L (98-107) Carbon Dioxide Level 28 mmol/L (21-32) Anion Gap 8 (6-14) Blood Urea Nitrogen 26 mg/dL (7-20) Creatinine 2.0 mg/dL (0.6-1.0) Estimated GFR (Cockcroft-Gault) 24.6 BUN/Creatinine Ratio 13 (6-20) Glucose Level 135 mg/dL (70-99) Calcium Level 8.5 mg/dL (8.5-10.1) Total Bilirubin 0.6 mg/dL (0.2-1.0) Aspartate Amino Transf (AST/SGOT) 30 U/L (15-37) Alanine Aminotransferase (ALT/SGPT) 28 U/L (14-59) Alkaline Phosphatase 89 U/L (46-116) Total Protein 6.9 g/dL (6.4-8.2) Albumin 2.6 g/dL (3.4-5.0) Albumin/Globulin Ratio 0.6 (1.0-1.7) ELIZABETH MEHTA MD Jan 29, 2017 10:59
[2017-01-29 11:00] VITALS: BP 107/63
--- NOTE | 2017-01-30 08:59 | DS ---
DATE OF DISCHARGE: 01/29/2017 PRIMARY DIAGNOSIS: Clostridium difficile colitis. ADDITIONAL DIAGNOSES: Leukocytosis, acute renal failure, diabetes, abdominal pain, benign pancreatic cyst. CHIEF COMPLAINT AND HISTORY OF PRESENT ILLNESS: This is a 72-year-old white female, who is well known to me from followup in the office. The patient was admitted on the day of admission after a week or more worth of illness, which includes generalized feeling worse, fevers, chills, no energy, and anorexia with some respiratory symptoms early on, was seen in the Urgent Care, had been given steroids and Augmentin. She had continued to feel very ____, also developing a lot of upper abdominal discomfort within the last 24 hours prior to admission. Her creatinine was elevated at 1.6, which is normal. White count was 20,000 with a left shift, and because of leukocytosis, abdominal pain, and acute renal failure, she was admitted to the hospital. SUMMARY OF STAY: The patient was admitted, was initially febrile, started on vancomycin and Zosyn, had a white count of 20,000 with bandemia, and Infectious Disease was consulted. She was having some loose stools, but did not feel it was a big deal and did not mention it to me and did have C. diff. She was placed on oral vancomycin, improving day by day. She did develop an inflammatory arthritis 24 hours prior to the stay, which was not bilateral and symmetrical, but did have a sed rate of 65, and other rheumatological tests are pending at the time of discharge, but felt much better with Naproxen however. Her creatinine, which had dropped to 1.4, kicked back up to 2 on the day of discharge and Naproxen will be held at the time of discharge and given a prescription for prednisone 10 mg a day to take if the joint starts bothering her again. Due to the cost of the vancomycin, she will be transitioned to Flagyl at the time of discharge for treatment of the C. diff. I will see her on Monday in the office at which time, we will repeat renal function as she is feeling good enough at this point in time with an appetite and wants to go home. DISPOSITION: The patient is discharged to home. DIET: ADA diet. ACTIVITY: As tolerated, to office on Monday. DISCHARGE MEDICATIONS: Listed on the medication reconciliation and have been addressed. ELIZABETH MEHTA MD DR: Kelly JOB#: [id number] / [id number]
== END 2017-01-29 11:44 | disposition home or self-care (01) | DRG 372 ==
LOC: 5 NORTH 20:13
PROVIDERS: ADMIT Family Medicine; ATTEND Family Medicine
DX: A04.7 Enterocolitis due to Clostridium difficile (principal); N17.9 Acute kidney failure, unspecified; K86.2 Cyst of pancreas; E44.0 Moderate protein-calorie malnutrition; D72.825 Bandemia; H66.90 Otitis media, unspecified, unspecified ear; E11.9 Type 2 diabetes mellitus without complications; I10 Essential (primary) hypertension; E66.01 Morbid (severe) obesity due to excess calories; F32.9 Major depressive disorder, single episode, unspecified; M19.90 Unspecified osteoarthritis, unspecified site; Z83.3 Family history of diabetes mellitus; Z87.442 Personal history of urinary calculi; Z80.9 Family history of malignant neoplasm, unspecified; Z91.041 Radiographic dye allergy status; Z91.048 Other nonmedicinal substance allergy status; Z87.440 Personal history of urinary (tract) infections; Z68.36 Body mass index [BMI] 36.0-36.9, adult
CPT/HCPCS: 36415; 74176; 80048; 80053; 81001; 82150; 82962; 83690; 84550; 85007; 85027; 85651; 86060; 86431; 87040; 87324; J2405; J2543; J3370; J7040; J7050; Q0162; J7030

== ENCOUNTER → 2017-04-04 | Outpatient (CLI) | payer MEDICARE, OTHER ==
[2017-02-27 11:28] VITALS: BP 130/73
[~2017-04-04] MED LIST changes: +CONTRAST GIVEN MC PRN; +IOHEXOL 240 MG/ML 50ML VIAL. PO ONE; +IOHEXOL 300 MG/ML 75 ML VIAL IV ONE; +PRED-220 PO; +PRED20TA PO
[2017-04-04 10:22] LABS: CREATININE 1.3 mg/dL (0.6-1.0); GFR 40.5
--- NOTE | 2017-04-04 13:47 | RAD ---
Indication evaluate pancreatic mass. Oral contrast, Volumen, was administered. No IV contrast was administered. Comparison is made to a study 02/21/2017. There is some volume loss at the lung bases likely reflecting atelectasis or scar. A definite significant finding at either lung base is not seen. The liver and spleen appear unremarkable. Percutaneous drainage catheter is noted extending into the gallbladder. Partially calcified cystic mass associated with the pancreatic body is noted. It measures approximately 3.7 x 3.1 cm representing a slight diminution in size compared to the previous examination at which time it measured approximately 4.2 x 3.4 cm. A new pancreatic finding is not seen. No adrenal masses are seen. There are minute renal calculi. There is some mild periaortic adenopathy which is likely reactive and incidental. It is similar to the previous exam. New finding in the abdomen is not seen. No acute or significant finding is seen in the pelvis. Kyphoplasty changes are noted at L1 IMPRESSION: Known cystic mass associated with the body of the pancreas persists but appears slightly smaller. Acute finding in the abdomen is not apparent
== END | disposition home or self-care (01) ==
LOC: CT 13:08
PROVIDERS: ATTEND Surgery
DX: K86.2 Cyst of pancreas (principal); K81.9 Cholecystitis, unspecified; N94.89 Other specified conditions associated with female genital organs and menstrual cycle
CPT/HCPCS: 36415; 74176; 82565; 84520; Q9966

== ENCOUNTER 2017-04-12 10:50 | Inpatient (IN) | payer MEDICARE, OTHER ==
[2017-04-12] VITALS (9 sets, daily range): BP systolic 143–166; BP diastolic 70–95
[~2017-04-12] VITALS: Ht 165.1 cm; Wt 95.1 kg
[~2017-04-12 10:50] MED LIST changes: +BUPIVAC MPF-EPI 0.5%-1:200000 30 ML VIAL. ONE; -CONTRAST GIVEN MC PRN; +HYDROmorphone 2 MG/ML VIAL IV PRN; -IOHEXOL 240 MG/ML 50ML VIAL. PO ONE; +IOHEXOL 300 MG/ML 50 ML VIAL. ONE; -IOHEXOL 300 MG/ML 75 ML VIAL IV ONE; +IV RINGERS,LACTATED 1000ML 1,000 ML IV SCH; +LIDOCAINE 1% 1 ML SYRINGE. ID PRN; +MORPHINE SULFATE 2 MG/ML DISP.SYRIN. IV PRN; +ONDANSETRON PF 4 MG/2 ML VIAL. IV PRN; +PROCHLORPERAZINE 10 MG/2 ML VIAL. IV PRN; +SURGICEL HEMOSTAT 4X8 EACH. ONE; +VERA240C2 PO; +fentaNYL PF VIAL 100 MCG/2 ML VIAL IV PRN
[2017-04-12] MEDS ORDERED: LIDOCAINE 2% PF Vial for OR 5 ML VIAL. ONE ×2 (11:13→11:57)
[2017-04-12] MEDS ORDERED: PROPOFOL 0 ML IV ONE (11:13)
[2017-04-12] MEDS ORDERED: DEXAMETHASONE SOD PHOS 20 MG/5 ML VIAL. ONE ×2 (11:13→11:57)
[2017-04-12] MEDS ORDERED: ONDANSETRON PF 4 MG/2 ML VIAL. ONE ×2 (11:13→11:57)
[2017-04-12] MEDS ORDERED: ROCURONIUM 100 MG/10 ML VIAL. ONE ×2 (11:14→11:57)
[2017-04-12] MEDS ORDERED: DESFLURANE 61 TO 120 MINUTES IH ONE (11:20)
[2017-04-12] MEDS ORDERED: fentaNYL PF VIAL 100 MCG/2 ML VIAL ONE ×5 (11:24→16:19)
[2017-04-12 11:44] LABS: BASO % 1 % (0-3); EOS % 12 % (0-3); HEMOGLOBIN 11.6 g/dL (12.0-15.5); LYMPH % 18 % (24-48); MEAN CORPUSCULAR HEMOGLOBIN 32 pg (25-35); MEAN CORPUSCULAR HGB CONC 33 g/dL (31-37); MEAN CORPUSCULAR VOLUME 95 fL (79-100); MONO % 9 % (0-9); NEUT % 60 % (31-73); PLATELET COUNT 204 x10^3/uL (140-400); RED BLOOD COUNT 3.68 x10^6/uL (3.50-5.40); WHITE BLOOD COUNT 5.5 x10^3/uL (4.0-11.0)
[2017-04-12] MEDS ORDERED: PROPOFOL 20 ML IV ONE (11:57)
[2017-04-12] MEDS ORDERED: GLYCOPYRROLATE 1 MG/5 ML VIAL. ONE (11:57)
[2017-04-12] MEDS ORDERED: ceFAZolin 2GM PREMIX 2 GM/50 ML BAG IV ONE (12:00)
[2017-04-12 12:06] LABS: CALCIUM 9.1 mg/dL (8.5-10.1); CREATININE 1.1 mg/dL (0.6-1.0); GFR 49.1; POTASSIUM 3.9 mmol/L (3.5-5.1)
[2017-04-12 12:11] LABS: ALBUMIN 3.7 g/dL (3.4-5.0); TOTAL BILIRUBIN 0.5 mg/dL (0.2-1.0)
[2017-04-12] MEDS ORDERED: diphenhydrAMINE 50 MG/ML VIAL ONE (14:00)
[2017-04-12] MEDS ORDERED: FAMOTIDINE 20 MG/2 ML VIAL ONE (14:00)
[2017-04-12] MEDS ORDERED: SEVOFLURANE 61 TO 120 MINUTES. IH ONE (14:00)
[2017-04-12 14:40] LABS: INR 1.2 (0.8-1.1)
--- NOTE | 2017-04-12 15:00 | RAD ---
Intraoperative cholangiogram, 04/12/2017: History: Cholecystectomy 6 spot films from surgery are presented for review. Contrast has been injected into the cystic duct remnant. 0.7 minutes of fluoroscopy time was utilized. There is good flow of contrast into the duodenum at the ampulla. No filling defect is seen in the common duct to suggest a retained calculus. The incompletely opacified intrahepatic ducts are unremarkable. No contrast extravasation is seen. An old percutaneous cholecystostomy drain is projected over the gallbladder fossa. IMPRESSION: No significant abnormality is detected.
[2017-04-12] MEDS: fentaNYL PF VIAL 100 MCG/2 ML VIAL IV PRN ×2 (16:15→17:02)
[2017-04-12] MEDS ORDERED: LABETALOL 20 MG/4 ML DISP.SYRIN. ONE (16:33)
--- NOTE | 2017-04-12 16:34 | RAD ---
Abdominal radiograph 04/12/2017 at 1542 hours Indication: Postoperative KUB in the OR. One drain left in postoperatively. Comparison: Abdominal radiograph 02/20/2017 Technique: Single portable supine view the abdomen is provided. Findings: Supine technique limits evaluation for free intraperitoneal air. Contrast is identified within small bowel loops. A surgical drain is identified terminating in the right upper quadrant. No additional radiopaque densities are identified. There are are no dilated loops of small or large bowel. Mild to moderate degenerative disc disease is noted in the lower lumbar spine. Impression: 1. A single surgical drain remains in the right upper quadrant. No additional radiopaque densities are present. 2. Nonobstructive bowel gas pattern.
[2017-04-12] MEDS ORDERED: diphenhydrAMINE HCL 25 MG CAPSULE PO PRN (16:45)
[2017-04-12] MEDS ORDERED: diphenhydrAMINE 50 MG/ML VIAL IV PRN (16:45)
[2017-04-12] MEDS ORDERED: ONDANSETRON PF 4 MG/2 ML VIAL. IV PRN (16:45)
[2017-04-12] MEDS ORDERED: 0.9 % SODIUM CHLORIDE 10 ML DISP.SYRIN. IV PRN (16:45)
[2017-04-12] MEDS ORDERED: LABETALOL 20 MG/4 ML DISP.SYRIN. IVP PRN (16:45)
--- NOTE | 2017-04-12 16:51 | PDOC ---
BRIEF OPERATIVE NOTE Date: Apr 12, 2017 Pre-Op Diagnosis cholecystitis Post-Op Diagnosis same, cirrhotic changes Procedure Performed l/s --> "open" cholecystectomy with cholangiogram OBI liver biopsy Surgeon Benjie Analyst Programmer Karmen NELSON Anesthesia Type: General Blood Loss 150cc IV Fluid 1300cc Specimens Obtained GB, liver biopsy Findings adhesions from previous surgery and the acute episode of cholecystitis last month Complications converted to "open" DELMAR SALINAS MD Apr 12, 2017 16:51
[2017-04-12] MEDS: POTASSIUM CL 20MEQ-0.45% NACL 1,000 ML IV SCH (20:31)
[2017-04-12] MEDS ORDERED: VANC125S PO (20:59)
[2017-04-12] MEDS: VANCOMYCIN 125 MG/2.5 ML ORAL SOLUTION. PO SCH (21:53)
[2017-04-12] MEDS: DOCUSATE SODIUM 100 MG CAPSULE. PO SCH (21:53)
[2017-04-13 03:00] VITALS: BP 145/82
[2017-04-13] MEDS: POTASSIUM CL 20MEQ-0.45% NACL 1,000 ML IV SCH ×2 (05:38→16:30)
[2017-04-13 07:00] VITALS: BP 144/84
--- NOTE | 2017-04-13 08:19 | PDOC ---
GENERAL General: see dictated consult. doing very well post-op to date. Problems: VITAL SIGNS Vital Signs: Vital Signs Date Time Temp Pulse Resp B/P (MAP) Pulse Ox O2 Delivery O2 Flow Rate FiO2 04/13/17 07:00 97.5 101 22 144/84 (104) 94 Room Air 97.5 04/12/17 21:45 1.0 I & O I & O Intake and Output 04/13/17 07:00 Intake Total 2008.57 ml Output Total 725 ml Balance 1283.57 ml Intake Oral 1000 ml IV Total 1008.57 ml Output Urine Total 650 ml Drainage Total 75 ml ALLERGIES Allergies: Allergies Coded Allergies Type Severity Reaction Last Updated Verified Iodinated Contrast- Oral and IV Dye Allergy Severe 04/12/17 Yes I S O L A T I O N *CONTACT* Allergy Intermediate 04/12/17 Yes adhesive tape Allergy Intermediate BANDAIDS 04/12/17 Yes metronidazole Allergy Intermediate Rash 04/12/17 Yes MEDS Medications: Current Medications Medications (Trade) Dose Ordered Sig/Anitra Start Time Stop Time Status Last Admin Dose Admin Bupivacaine HCl/ Epinephrine Bitart (Sensorcain-Mpf Epi 0.5%-1:348150) 30 ml STK-MED ONCE 04/12/17 06:32 04/12/17 06:33 DC 04/12/17 13:45 7 ML Cefazolin Sodium/ Dextrose 50 ml @ 100 mls/hr 1X PREOP PRN 04/12/17 06:00 04/12/17 18:00 DC 04/12/17 13:19 100 MLS/HR Cefoxitin Sodium 1 gm/Sodium Chloride 50 ml @ 100 mls/hr Q6H 04/12/17 19:30 04/13/17 07:59 DC 04/13/17 07:16 100 MLS/HR Cellulose 1 each STK-MED ONCE 04/12/17 06:32 04/12/17 06:33 DC Desflurane (Suprane) 60 ml STK-MED ONCE 04/12/17 11:20 04/12/17 11:21 DC Dexamethasone Sodium Phosphate (Decadron) 20 mg STK-MED ONCE 04/12/17 11:57 04/12/17 11:58 DC Diphenhydramine HCl (Benadryl) 25 mg PRN Q6HRS PRN 04/12/17 16:45 Docusate Sodium (Colace) 100 mg BID 04/12/17 21:00 04/12/17 21:53 100 MG Enoxaparin Sodium (Lovenox 40mg Syringe) 40 mg Q24H 04/13/17 09:00 Famotidine (Pepcid) 20 mg STK-MED ONCE 04/12/17 14:00 04/12/17 14:01 DC Fentanyl Citrate (Fentanyl 2ml Vial) 100 mcg STK-MED ONCE 04/12/17 16:19 04/12/17 16:20 DC Glycopyrrolate (Robinul) 1 mg STK-MED ONCE 04/12/17 11:57 04/12/17 11:58 DC Hydromorphone HCl 30 ml @ As Directed STK-MED ONCE 04/12/17 17:22 04/12/17 18:03 DC Hydromorphone HCl (Dilaudid) 0.5 mg PRN Q10MIN PRN 04/12/17 07:00 04/13/17 06:59 DC Iohexol (Omnipaque 300 Mg/ml) 50 ml STK-MED ONCE 04/12/17 06:32 04/12/17 06:33 DC 04/12/17 14:45 10 ML Labetalol HCl (Normodyne) 5 mg PACU PRN PRN 04/12/17 16:45 Lidocaine HCl (Lidocaine Pf 2% Vial) 5 ml STK-MED ONCE 04/12/17 11:57 04/12/17 11:58 DC Morphine Sulfate 1 mg PRN Q10MIN PRN 04/12/17 07:00 04/13/17 06:59 DC Ondansetron HCl (Zofran) 4 mg PRN Q6HRS PRN 04/12/17 16:45 Pioglitazone HCl (Actos) 30 mg DAILY 04/13/17 09:00 Potassium Chloride/Sodium Chloride 1,000 ml @ 100 mls/hr Q10H 04/12/17 18:30 04/13/17 05:38 100 MLS/HR Prochlorperazine Edisylate (Compazine) 5 mg PACU PRN PRN 04/12/17 07:00 04/13/17 06:59 DC Propofol 20 ml @ As Directed STK-MED ONCE 04/12/17 11:57 04/12/17 11:58 DC Ringer's Solution 1,000 ml @ 30 mls/hr Q24H 04/12/17 07:00 04/12/17 18:59 DC 04/12/17 11:33 30 MLS/HR Rocuronium [place] (Zemuron) 100 mg STK-MED ONCE 04/12/17 11:57 04/12/17 11:58 DC Sevoflurane (Ultane) 60 ml STK-MED ONCE 04/12/17 14:00 04/12/17 14:01 DC Sodium Chloride (Normal Saline Flush) 3 ml QSHIFT PRN 04/12/17 16:45 Vancomycin HCl 125 mg [id number] 04/12/17 22:00 04/12/17 21:53 125 MG Verapamil HCl (Calan Sr) 240 mg DAILY 04/13/17 09:00 LAB Lab: Laboratory Tests Test 04/12/17 11:19 04/12/17 14:20 04/12/17 16:15 04/12/17 20:51 White Blood Count 5.5 x10^3/uL (4.0-11.0) Red Blood Count 3.68 x10^6/uL (3.50-5.40) Hemoglobin 11.6 g/dL (12.0-15.5) Hematocrit 35.0 % (36.0-47.0) Mean Corpuscular Volume 95 fL (79-100) Mean Corpuscular Hemoglobin 32 pg (25-35) Mean Corpuscular Hemoglobin Concent 33 g/dL (31-37) Red Cell Distribution Width 16.0 % (11.5-14.5) Platelet Count 204 x10^3/uL (140-400) Neutrophils (%) (Auto) 60 % (31-73) Lymphocytes (%) (Auto) 18 % (24-48) Monocytes (%) (Auto) 9 % (0-9) Eosinophils (%) (Auto) 12 % (0-3) Basophils (%) (Auto) 1 % (0-3) Neutrophils # (Auto) 3.3 x10^3uL (1.8-7.7) Lymphocytes # (Auto) 1.0 x10^3/uL (1.0-4.8) Monocytes # (Auto) 0.5 x10^3/uL (0.0-1.1) Eosinophils # (Auto) 0.7 x10^3/uL (0.0-0.7) Basophils # (Auto) 0.0 x10^3/uL (0.0-0.2) Sodium Level 141 mmol/L (136-145) Potassium Level 3.9 mmol/L (3.5-5.1) Chloride Level 104 mmol/L (98-107) Carbon Dioxide Level 26 mmol/L (21-32) Anion Gap 11 (6-14) Blood Urea Nitrogen 17 mg/dL (7-20) Creatinine 1.1 mg/dL (0.6-1.0) Estimated GFR (Cockcroft-Gault) 49.1 Glucose Level 122 mg/dL (70-99) Calcium Level 9.1 mg/dL (8.5-10.1) Total Bilirubin 0.5 mg/dL (0.2-1.0) Albumin 3.7 g/dL (3.4-5.0) Prothrombin Time 14.0 SEC (11.7-14.0) Prothromb Time International Ratio 1.2 (0.8-1.1) Activated Partial Thromboplast Time 28 SEC (24-38) Glucose (Fingerstick) 161 mg/dL (70-99) 143 mg/dL (70-99) Test 04/13/17 07:34 Glucose (Fingerstick) 133 mg/dL (70-99) ELIZABETH MEHTA MD Apr 13, 2017 08:19
--- NOTE | 2017-04-13 09:14 | CONS ---
DATE OF CONSULTATION: 04/13/2017 CHIEF COMPLAINT AND HISTORY OF PRESENT ILLNESS: This is a 72-year-old white female who is well known to me from followup in the office for many, many years. The patient was admitted yesterday for a cholecystectomy. It was attempted laparoscopically, but due to scar tissue, it had to be converted to an open, and we are consulted to see her for medical issues. PAST MEDICAL HISTORY: Remarkable for C. diff. She is still on vancomycin for the same. She has a benign pancreatic cyst, for which has been worked up exhaustively in the past. She has a history of colon polyp, osteoarthritis, sepsis, diabetes, hypertension, recurrent UTIs, kidney stones. PAST SURGICAL HISTORY: Remarkable for prior ankle and right knee surgery, hysterectomy, and small bowel resection following trauma, 40 years ago. MEDICATIONS: Brought with the patient, listed on the computer and have been addressed. ALLERGIES: INCLUDE IVP DYE, BANDAGES AND METRONIDAZOLE. FAMILY HISTORY: Positive for diabetes and cancer. SOCIAL HISTORY: She is nonsmoker, rarely drinks alcohol, does not use drugs. , lives at home with her . REVIEW OF SYSTEMS: Remarkable for the expected discomfort in the right upper quadrant, status post surgery. She overall though feels like something feels better than it has since this all started with her gallbladder and the drain that she has had now for the last 6 weeks or so. She also complains of not being able to sleep well in the hospital and requests something to the same. PHYSICAL EXAMINATION: GENERAL: She is a well-developed, well-nourished white female, in no acute distress at rest. VITAL SIGNS: Stable. She is afebrile. HEAD, EYES, EARS, NOSE AND THROAT: Unremarkable. NECK: Supple without bruit, thyromegaly. CHEST: Clear to auscultation and percussion. HEART: Regular rate and rhythm, without S3, S4 or murmur. ABDOMEN: She does have incisional tenderness as expected, but otherwise soft, without rebound or guarding, organomegaly or masses. EXTREMITIES: Without cyanosis, clubbing or edema. NEUROLOGIC: She is intact. IMPRESSION: Status post open cholecystectomy, with other problems listed above. PLAN: The patient has been admitted. We will follow medically. Trazodone will be added for sleep, and the patient will be monitored, managed and treated appropriately. ELIZABETH MEHTA MD DR: Kelly JOB#: [id number] / [id number]
--- NOTE | 2017-04-13 09:37 | PDOC ---
SURGICAL PROGRESS NOTE Subjective tolerating clears some pain no n/v Vital Signs Vital Signs Date Time Temp Pulse Resp B/P (MAP) Pulse Ox O2 Delivery O2 Flow Rate FiO2 04/13/17 07:00 97.5 101 22 144/84 (104) 94 Room Air 97.5 04/12/17 21:45 1.0 I&O Intake and Output 04/13/17 07:00 Intake Total 2008.57 ml Output Total 725 ml Balance 1283.57 ml Intake Oral 1000 ml IV Total 1008.57 ml Output Urine Total 650 ml Drainage Total 75 ml General: Alert, Oriented X3, Cooperative, No acute distress Abdomen: Soft, Other (ND, dressing dry, incisional TTP, fabio serosang ) Labs Laboratory Tests Test 04/12/17 11:19 04/12/17 14:20 04/12/17 16:15 04/12/17 20:51 White Blood Count 5.5 x10^3/uL (4.0-11.0) Red Blood Count 3.68 x10^6/uL (3.50-5.40) Hemoglobin 11.6 g/dL (12.0-15.5) Hematocrit 35.0 % (36.0-47.0) Mean Corpuscular Volume 95 fL (79-100) Mean Corpuscular Hemoglobin 32 pg (25-35) Mean Corpuscular Hemoglobin Concent 33 g/dL (31-37) Red Cell Distribution Width 16.0 % (11.5-14.5) Platelet Count 204 x10^3/uL (140-400) Neutrophils (%) (Auto) 60 % (31-73) Lymphocytes (%) (Auto) 18 % (24-48) Monocytes (%) (Auto) 9 % (0-9) Eosinophils (%) (Auto) 12 % (0-3) Basophils (%) (Auto) 1 % (0-3) Neutrophils # (Auto) 3.3 x10^3uL (1.8-7.7) Lymphocytes # (Auto) 1.0 x10^3/uL (1.0-4.8) Monocytes # (Auto) 0.5 x10^3/uL (0.0-1.1) Eosinophils # (Auto) 0.7 x10^3/uL (0.0-0.7) Basophils # (Auto) 0.0 x10^3/uL (0.0-0.2) Sodium Level 141 mmol/L (136-145) Potassium Level 3.9 mmol/L (3.5-5.1) Chloride Level 104 mmol/L (98-107) Carbon Dioxide Level 26 mmol/L (21-32) Anion Gap 11 (6-14) Blood Urea Nitrogen 17 mg/dL (7-20) Creatinine 1.1 mg/dL (0.6-1.0) Estimated GFR (Cockcroft-Gault) 49.1 Glucose Level 122 mg/dL (70-99) Calcium Level 9.1 mg/dL (8.5-10.1) Total Bilirubin 0.5 mg/dL (0.2-1.0) Albumin 3.7 g/dL (3.4-5.0) Prothrombin Time 14.0 SEC (11.7-14.0) Prothromb Time International Ratio 1.2 (0.8-1.1) Activated Partial Thromboplast Time 28 SEC (24-38) Glucose (Fingerstick) 161 mg/dL (70-99) 143 mg/dL (70-99) Test 04/13/17 07:34 Glucose (Fingerstick) 133 mg/dL (70-99) Laboratory Tests Test 04/12/17 11:19 04/12/17 14:20 04/12/17 16:15 04/12/17 20:51 White Blood Count 5.5 x10^3/uL (4.0-11.0) Red Blood Count 3.68 x10^6/uL (3.50-5.40) Hemoglobin 11.6 g/dL (12.0-15.5) Hematocrit 35.0 % (36.0-47.0) Mean Corpuscular Volume 95 fL (79-100) Mean Corpuscular Hemoglobin 32 pg (25-35) Mean Corpuscular Hemoglobin Concent 33 g/dL (31-37) Red Cell Distribution Width 16.0 % (11.5-14.5) Platelet Count 204 x10^3/uL (140-400) Neutrophils (%) (Auto) 60 % (31-73) Lymphocytes (%) (Auto) 18 % (24-48) Monocytes (%) (Auto) 9 % (0-9) Eosinophils (%) (Auto) 12 % (0-3) Basophils (%) (Auto) 1 % (0-3) Neutrophils # (Auto) 3.3 x10^3uL (1.8-7.7) Lymphocytes # (Auto) 1.0 x10^3/uL (1.0-4.8) Monocytes # (Auto) 0.5 x10^3/uL (0.0-1.1) Eosinophils # (Auto) 0.7 x10^3/uL (0.0-0.7) Basophils # (Auto) 0.0 x10^3/uL (0.0-0.2) Sodium Level 141 mmol/L (136-145) Potassium Level 3.9 mmol/L (3.5-5.1) Chloride Level 104 mmol/L (98-107) Carbon Dioxide Level 26 mmol/L (21-32) Anion Gap 11 (6-14) Blood Urea Nitrogen 17 mg/dL (7-20) Creatinine 1.1 mg/dL (0.6-1.0) Estimated GFR (Cockcroft-Gault) 49.1 Glucose Level 122 mg/dL (70-99) Calcium Level 9.1 mg/dL (8.5-10.1) Total Bilirubin 0.5 mg/dL (0.2-1.0) Albumin 3.7 g/dL (3.4-5.0) Prothrombin Time 14.0 SEC (11.7-14.0) Prothromb Time International Ratio 1.2 (0.8-1.1) Activated Partial Thromboplast Time 28 SEC (24-38) Glucose (Fingerstick) 161 mg/dL (70-99) 143 mg/dL (70-99) Test 04/13/17 07:34 Glucose (Fingerstick) 133 mg/dL (70-99) Assessment/Plan s/p open dionte HTN, tachy--her PCP following pt clears today Dillon out POD#2 Problems: 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
--- NOTE | 2017-04-13 10:06 | OP ---
DATE OF SURGERY: 04/12/2017 PREOPERATIVE DIAGNOSIS: Cholecystitis. POSTOPERATIVE DIAGNOSIS: Cholecystitis with cirrhotic changes and abdominal adhesions. PROCEDURE: 1. Laparoscopic converted to "open" cholecystectomy with cholangiogram. 2. Lysis of adhesions. 3. Liver biopsy. SURGEON: Martín Salinas MD PAPER TESTING SUPERVISOR: OMAR Fong ANESTHESIA: General endotracheal. ESTIMATED BLOOD LOSS: 150. INTRAVENOUS FLUIDS: 1300. INDICATIONS: The patient is a 72-year-old lady who approximately 6 weeks ago underwent a cholecystostomy tube for an acute cholecystitis. She is brought for removal of the tube and cholecystectomy. OPERATIVE FINDINGS: The liver had [id number] cirrhotic changes. The gallbladder was sclerotic and scarred down. There were abdominal adhesions from previous procedures and the recent inflammatory process with the gallbladder. DESCRIPTION OF PROCEDURE: The patient was brought to the operating suite, given a general endotracheal anesthetic, and the abdomen was prepped and draped in the usual sterile fashion. Because of her history of a midline abdominal incision, a port was placed in the midclavicular line below the costal margin in hopes of finding an area free of adhesions. However, attempted placement of the 5 mm Visiport encountered adherent bowel and concern over possible bowel injury was entertained. As such, we abandoned the laparoscopic approach and made a right subcostal incision. The abdomen was carefully entered and adhesions of bowel and omentum were taken down from the abdominal wall. The port had been left in place and inspection revealed a small perforation of the colon was associated with it. The port was removed and the small rent was closed with 3-0 chromic in the mucosal layer followed by interrupted 3-0 Vicryl to imbricate the repair. No abdominal contamination was seen. With the Omni self-retaining retractor for exposure, we set about exposing the gallbladder by taking down adhesions of the colon and omentum from the inferior surface. The fundus of the gallbladder was scored with cautery and we carefully freed it from the cirrhotic liver bed down to an area where we could identify the cystic duct. This was clipped on the gallbladder side. Cholangiograms were made. These showed dilated biliary system, but no evidence of obstructive stone. In light of this, the catheter was removed, the biliary tree decompressed, cystic duct clipped x 3 and divided taking care to avoid injury or compromise of the common duct. The cystic artery was isolated and ligated with a 2-0 Vicryl tie. This allowed removal of the gallbladder intact. The area was irrigated, evacuated and checked for adequate hemostasis. This was present. A 14-gauge Jay-Cut biopsy needle was used to harvest a liver biopsy. Hemostasis with cautery was good. We then inspected the area where we closed the small colonic rent. No evidence of other injury was seen. A 19-Tajik round Reinaldo drain was brought through an inferolateral stab wound, left in the subhepatic space for postoperative drainage. When a correct sponge count was obtained, the incision was closed by running the posterior sheath peritoneum with 0 Vicryl. Anterior sheath was closed in running fashion using looped 0 PDS tied in the middle. SubQ approximated with 3-0 Vicryl, skin closed with a subcuticular 4-0 Monocryl. Steri-Strips and sterile dressings applied. Postop foreign body film was negative for unexplained foreign body. Dillon catheter placed to dependent drainage. The patient awakened from her anesthetic and taken to the recovery room in satisfactory condition. MARTÍN SALINAS MD DR: MARGARET/ariela JOB#: [id number] / [id number]
[2017-04-13] MEDS: PIOGLITAZONE 15 MG TABLET. PO SCH (10:16)
[2017-04-13] MEDS: DOCUSATE SODIUM 100 MG CAPSULE. PO SCH ×2 (10:16→21:09)
[2017-04-13] MEDS: VERAPAMIL SR 120 MG TABLET.ER. PO SCH (10:18)
[2017-04-13] MEDS: ENOXAPARIN 40 MG/0.4 ML SYRINGE. SQ SCH (10:21)
[2017-04-13] MEDS: VANCOMYCIN 125 MG/2.5 ML ORAL SOLUTION. PO SCH ×4 (10:55→21:09)
[2017-04-13 11:00] VITALS: BP 134/70
[2017-04-13] MEDS ORDERED: HYDROmorphone 2 MG/ML VIAL IM PRN (11:15)
[2017-04-13] MEDS ORDERED: oxyCODONE/APAP 5/325 1 TAB TABLET PO PRN (11:15)
[2017-04-13 15:16] VITALS: BP 128/72
[2017-04-13 19:00] VITALS: BP 157/80
[2017-04-13] MEDS ORDERED: traZODone 50 MG TABLET. PO SCH (21:00)
[2017-04-13 23:00] VITALS: BP 135/67
[2017-04-14] MEDS: POTASSIUM CL 20MEQ-0.45% NACL 1,000 ML IV SCH ×2 (00:30→10:30)
[2017-04-14 02:58] VITALS: BP 133/67
[2017-04-14 07:00] VITALS: BP 150/70
--- NOTE | 2017-04-14 08:19 | PDOC ---
GENERAL General: vss and afebrile. awake and alert. pain well controlled. drain fell out in bed last night. taking po well enough. chest clear, heart regular, and abdomen soft. overall doing well with good blood sugars. Problems: VITAL SIGNS Vital Signs: Vital Signs Date Time Temp Pulse Resp B/P (MAP) Pulse Ox O2 Delivery O2 Flow Rate FiO2 04/14/17 02:58 97.7 93 18 133/67 (89) 96 Room Air 97.7 I & O I & O Intake and Output 04/14/17 07:00 Intake Total 240 ml Output Total 1070 ml Balance -830 ml Intake Oral 240 ml Output Urine Total 980 ml Drainage Total 90 ml # Voids 3 ALLERGIES Allergies: Allergies Coded Allergies Type Severity Reaction Last Updated Verified Iodinated Contrast- Oral and IV Dye Allergy Severe 04/12/17 Yes I S O L A T I O N *CONTACT* Allergy Intermediate 04/12/17 Yes adhesive tape Allergy Intermediate BANDAIDS 04/12/17 Yes metronidazole Allergy Intermediate Rash 04/12/17 Yes MEDS Medications: Current Medications Medications (Trade) Dose Ordered Sig/Anitra Start Time Stop Time Status Last Admin Dose Admin Bupivacaine HCl/ Epinephrine Bitart (Sensorcain-Mpf Epi 0.5%-1:925589) 30 ml STK-MED ONCE 04/12/17 06:32 04/12/17 06:33 DC 04/12/17 13:45 7 ML Cefazolin Sodium/ Dextrose (Ancef 2gm Premix) 2 gm STK-MED ONCE 04/12/17 12:00 04/13/17 11:37 DC Cefoxitin Sodium 1 gm/Sodium Chloride 50 ml @ 100 mls/hr Q6H 04/12/17 19:30 04/13/17 07:59 DC 04/13/17 07:16 100 MLS/HR Cellulose 1 each STK-MED ONCE 04/12/17 06:32 04/12/17 06:33 DC Desflurane (Suprane) 60 ml STK-MED ONCE 04/12/17 11:20 04/12/17 11:21 DC Dexamethasone Sodium Phosphate (Decadron) 20 mg STK-MED ONCE 04/12/17 11:57 04/12/17 11:58 DC Diphenhydramine HCl (Benadryl) 25 mg PRN Q6HRS PRN 04/12/17 16:45 Docusate Sodium (Colace) 100 mg BID 04/12/17 21:00 04/13/17 21:09 100 MG Enoxaparin Sodium (Lovenox 40mg Syringe) 40 mg Q24H 04/13/17 09:00 04/13/17 10:21 40 MG Famotidine (Pepcid) 20 mg STK-MED ONCE 04/12/17 14:00 04/12/17 14:01 DC Fentanyl Citrate (Fentanyl 2ml Vial) 100 mcg STK-MED ONCE 04/12/17 16:19 04/12/17 16:20 DC Glycopyrrolate (Robinul) 1 mg STK-MED ONCE 04/12/17 11:57 04/12/17 11:58 DC Hydromorphone HCl (Dilaudid) 0.5 mg PRN Q3HRS PRN 04/13/17 11:15 Iohexol (Omnipaque 300 Mg/ml) 50 ml STK-MED ONCE 04/12/17 06:32 04/12/17 06:33 DC 04/12/17 14:45 10 ML Labetalol HCl (Normodyne) 5 mg PACU PRN PRN 04/12/17 16:45 Lidocaine HCl (Lidocaine Pf 2% Vial) 5 ml STK-MED ONCE 04/12/17 11:57 04/12/17 11:58 DC Morphine Sulfate 1 mg PRN Q10MIN PRN 04/12/17 07:00 04/13/17 06:59 DC Ondansetron HCl (Zofran) 4 mg PRN Q6HRS PRN 04/12/17 16:45 Oxycodone/ Acetaminophen (Percocet 5/325) 1 tab PRN Q4HRS PRN 04/13/17 11:15 Pioglitazone HCl (Actos) 30 mg DAILY 04/13/17 09:00 04/13/17 10:16 30 MG Potassium Chloride/Sodium Chloride 1,000 ml @ 100 mls/hr Q10H 04/12/17 18:30 04/13/17 16:30 100 MLS/HR Prochlorperazine Edisylate (Compazine) 5 mg PACU PRN PRN 04/12/17 07:00 04/13/17 06:59 DC Propofol 20 ml @ As Directed STK-MED ONCE 04/12/17 11:57 04/12/17 11:58 DC Ringer's Solution 1,000 ml @ 30 mls/hr Q24H 04/12/17 07:00 04/12/17 18:59 DC 04/12/17 11:33 30 MLS/HR Rocuronium [place] (Zemuron) 100 mg STK-MED ONCE 04/12/17 11:57 04/12/17 11:58 DC Sevoflurane (Ultane) 60 ml STK-MED ONCE 04/12/17 14:00 04/12/17 14:01 DC Sodium Chloride (Normal Saline Flush) 3 ml QSHIFT PRN 04/12/17 16:45 Trazodone HCl (Desyrel) 50 mg QHS 04/13/17 21:00 04/13/17 21:09 50 MG Vancomycin HCl 125 mg [id number] 04/12/17 22:00 04/13/17 21:09 125 MG Verapamil HCl (Calan Sr) 240 mg DAILY 04/13/17 09:00 04/13/17 10:18 240 MG LAB Lab: Laboratory Tests Test 04/13/17 11:05 04/13/17 16:22 04/13/17 20:45 Glucose (Fingerstick) 123 mg/dL (70-99) 115 mg/dL (70-99) 112 mg/dL (70-99) ELIZABETH MEHTA MD Apr 14, 2017 08:19
[2017-04-14] MEDS: VANCOMYCIN 125 MG/2.5 ML ORAL SOLUTION. PO SCH ×2 (09:00→13:00)
[2017-04-14] MEDS: VERAPAMIL SR 120 MG TABLET.ER. PO SCH (09:27)
[2017-04-14] MEDS: DOCUSATE SODIUM 100 MG CAPSULE. PO SCH (09:27)
[2017-04-14] MEDS: PIOGLITAZONE 15 MG TABLET. PO SCH (09:27)
[2017-04-14] MEDS: ENOXAPARIN 40 MG/0.4 ML SYRINGE. SQ SCH (09:28)
--- NOTE | 2017-04-14 09:33 | PDOC ---
SURGICAL PROGRESS NOTE Subjective drain fell out otherwise feeling well Vital Signs Vital Signs Date Time Temp Pulse Resp B/P (MAP) Pulse Ox O2 Delivery O2 Flow Rate FiO2 04/14/17 09:27 100 150/70 04/14/17 07:00 97.1 18 93 Room Air 97.1 I&O Intake and Output 04/14/17 07:00 Intake Total 240 ml Output Total 1070 ml Balance -830 ml Intake Oral 240 ml Output Urine Total 980 ml Drainage Total 90 ml # Voids 3 General: Alert, Oriented X3, Cooperative, No acute distress Abdomen: Soft, Other (incision c/d/i, no erythema ) Labs Laboratory Tests Test 04/12/17 11:19 04/12/17 14:20 04/12/17 16:15 04/12/17 20:51 White Blood Count 5.5 x10^3/uL (4.0-11.0) Red Blood Count 3.68 x10^6/uL (3.50-5.40) Hemoglobin 11.6 g/dL (12.0-15.5) Hematocrit 35.0 % (36.0-47.0) Mean Corpuscular Volume 95 fL (79-100) Mean Corpuscular Hemoglobin 32 pg (25-35) Mean Corpuscular Hemoglobin Concent 33 g/dL (31-37) Red Cell Distribution Width 16.0 % (11.5-14.5) Platelet Count 204 x10^3/uL (140-400) Neutrophils (%) (Auto) 60 % (31-73) Lymphocytes (%) (Auto) 18 % (24-48) Monocytes (%) (Auto) 9 % (0-9) Eosinophils (%) (Auto) 12 % (0-3) Basophils (%) (Auto) 1 % (0-3) Neutrophils # (Auto) 3.3 x10^3uL (1.8-7.7) Lymphocytes # (Auto) 1.0 x10^3/uL (1.0-4.8) Monocytes # (Auto) 0.5 x10^3/uL (0.0-1.1) Eosinophils # (Auto) 0.7 x10^3/uL (0.0-0.7) Basophils # (Auto) 0.0 x10^3/uL (0.0-0.2) Sodium Level 141 mmol/L (136-145) Potassium Level 3.9 mmol/L (3.5-5.1) Chloride Level 104 mmol/L (98-107) Carbon Dioxide Level 26 mmol/L (21-32) Anion Gap 11 (6-14) Blood Urea Nitrogen 17 mg/dL (7-20) Creatinine 1.1 mg/dL (0.6-1.0) Estimated GFR (Cockcroft-Gault) 49.1 Glucose Level 122 mg/dL (70-99) Calcium Level 9.1 mg/dL (8.5-10.1) Total Bilirubin 0.5 mg/dL (0.2-1.0) Albumin 3.7 g/dL (3.4-5.0) Prothrombin Time 14.0 SEC (11.7-14.0) Prothromb Time International Ratio 1.2 (0.8-1.1) Activated Partial Thromboplast Time 28 SEC (24-38) Glucose (Fingerstick) 161 mg/dL (70-99) 143 mg/dL (70-99) Test 04/13/17 07:34 04/13/17 11:05 04/13/17 16:22 04/13/17 20:45 Glucose (Fingerstick) 133 mg/dL (70-99) 123 mg/dL (70-99) 115 mg/dL (70-99) 112 mg/dL (70-99) Laboratory Tests Test 04/13/17 11:05 04/13/17 16:22 04/13/17 20:45 Glucose (Fingerstick) 123 mg/dL (70-99) 115 mg/dL (70-99) 112 mg/dL (70-99) Assessment/Plan POD#2 open dionte advance diet likely home Monday Problems: TAWNYA LOPEZ APRN Apr 14, 2017 09:33
[2017-04-14 11:00] VITALS: BP 147/76
--- NOTE | 2017-04-14 14:51 | PATHOLOGY ---
PATHOLOGY REPORT * * * * * * * * FINAL DIAGNOSIS: A. Gallbladder, cholecystectomy: - Chronic and focal early mild acute and focal granulomatous cholecystitis. B. Liver needle biopsy: - Results to be reported separately. COMMENT: There are no calculi identified within the gallbladder lumen or specimen container. Sections of the gallbladder show edema, and chronic and focal early mild acute and focal granulomatous inflammation. There is no evidence of malignancy. The liver biopsy results will be reported separately. Special stain performed: Trichrome, reticulin, iron stain, PAS with diastase and PAS without diastase. (JPM:db; 04/14/2017) REPORT ELECTRONICALLY SIGNED BY: Rigo Rodríguez M.D. DATE/TIME: 04/14/2017 14:51 * * * * * * * * GROSS PATHOLOGY: A. Received in formalin labeled "Sotolar, Saritha, gallbladder and contents," is an 8.3 x 3.6 x 2.9 cm, intact gallbladder with dark purple hayes, focally hemorrhagic serosal surfaces. Opening the gallbladder reveals pale yellow jennings, thick, velvety mucosa and an average wall thickness of 0.7 cm. The lumen of the gallbladder contains a blue catheter with a curled, circular end, measuring 7.7 cm in length, 0.4 cm in diameter. The circular end measures 2.0 cm in diameter. There is also a large amount of blood clot present within the lumen, forming an aggregate measurement of 6.5 x 4.4 x 1.0cm. The blood clot is inspected and no calculi are readily identified. No masses are noted grossly. 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 B. Received in formalin labeled "liver biopsy," are multiple fragmented needle cores of jennings soft tissue ranging from less than 0.1 to 1.2 cm in length, which are submitted entirely in cassette B1. A liver panel will be obtained. (JPM; 04/13/17) INITIAL CPT CODE(S): A; 73113 B; 04725, 92781, 19578, 61669, 25990, 07283 Professional services performed by [facility] at [address] [address] Technical services performed by [facility] at [address] [place] [address], [address], [place] [address]. SPECIMEN(S) RECEIVED: A.Gallbladder and contents B.Liver, needle biopsy CLINICAL HISTORY: Cirrhotic liver changes, cholecystitis, pancreatic cyst PATIENT: SARITHA VILLAGRAN /AGE: 5 1945 (Age: 72) PATIENT #: [id number] ALT CASE #: SPECIMEN COLLECTION DATE: 04/12/2017 SPECIMEN RECEIVED DATE: 04/13/2017 [facility] - [address] [place] [address] - PHONE: [phone] * * * END OF REPORT * * *
[2017-04-14 15:00] VITALS: BP 129/69
== END 2017-04-14 16:30 | disposition home or self-care (01) | DRG 415 ==
LOC: SURG 10:50 → 4 NORTH 16:50
PROVIDERS: ADMIT Surgery; ATTEND Surgery
PROC: 0FB00ZX Excision of Liver, Open Approach, Diagnostic (ICD-10-PCS; 2017-04-12)
PROC: 0FJ44ZZ Inspection of Gallbladder, Percutaneous Endoscopic Approach (ICD-10-PCS; 2017-04-12)
PROC: BF101ZZ Fluoroscopy of Bile Ducts using Low Osmolar Contrast (ICD-10-PCS; 2017-04-12)
PROC: 0DNS0ZZ (ICD-10-PCS; 2017-04-12)
PROC: 0DNE0ZZ Release Large Intestine, Open Approach (ICD-10-PCS; 2017-04-12)
PROC: 0FT40ZZ Resection of Gallbladder, Open Approach (ICD-10-PCS; principal; 2017-04-12 12:30)
DX: K81.0 Acute cholecystitis (principal); K86.2 Cyst of pancreas; E11.9 Type 2 diabetes mellitus without complications; I10 Essential (primary) hypertension; K66.0 Peritoneal adhesions (postprocedural) (postinfection); M19.90 Unspecified osteoarthritis, unspecified site; Z90.710 Acquired absence of both cervix and uterus; Z88.8 Allergy status to other drugs, medicaments and biological substances; Z91.041 Radiographic dye allergy status; Z53.31 Laparoscopic surgical procedure converted to open procedure; Z86.010 Personal history of colon polyps; Z87.440 Personal history of urinary (tract) infections; Z87.442 Personal history of urinary calculi; Z83.3 Family history of diabetes mellitus; Z80.9 Family history of malignant neoplasm, unspecified
CPT/HCPCS: 36415; 74000; 74300; 80048; 82040; 82247; 82962; 85025; 85610; 85730; 88304; 88307; 88313; C1769; J0690; J0694; J1100; J1170; J1200; J1650; J2405; J2704; J3010; J3490; J7030; J7120; Q9967; S0028; J2001

== ENCOUNTER → 2020-03-20 | Outpatient (CLI) | payer MEDICARE, OTHER ==
[~2020-03-20] MED LIST changes: +AMLO5TAB10 PO; -BUPIVAC MPF-EPI 0.5%-1:200000 30 ML VIAL. ONE; +CITA10TA4 PO; -HYDROmorphone 2 MG/ML VIAL IV PRN; +IOHEXOL 180 MG/ML 10 ML VIAL. ONE; -IOHEXOL 300 MG/ML 50 ML VIAL. ONE; -IV RINGERS,LACTATED 1000ML 1,000 ML IV SCH; -LIDOCAINE 1% 1 ML SYRINGE. ID PRN; -MORPHINE SULFATE 2 MG/ML DISP.SYRIN. IV PRN; -ONDANSETRON PF 4 MG/2 ML VIAL. IV PRN; -PIOG30TA3 PO; +PIOG30TA62 PO; -PROCHLORPERAZINE 10 MG/2 ML VIAL. IV PRN; -SURGICEL HEMOSTAT 4X8 EACH. ONE; +TRIA1TAB3 PO; +VANC125S PO; -fentaNYL PF VIAL 100 MCG/2 ML VIAL IV PRN; +methylPREDNISolone ACETATE 40 MG/ML VIAL. ONE; +methylPREDNISolone ACETATE 80 MG/ML VIAL. ONE
--- NOTE | 2020-03-20 15:43 | PAIN ---
DATE OF SERVICE: 03/20/2020 INITIAL CONSULTATION FOR PAIN CLINIC CHIEF COMPLAINT: Neck and bilateral upper extremity pain, left greater than right. HISTORY OF PRESENT ILLNESS: This is a 75-year-old female who presents with history of pain in the base of neck and shoulders, left upper extremity for about a year and a half, worse over the past few months. The patient reports the pain was worse after driving a recreational vehicle. Her was sick, he cannot steer the driving responsibilities and she was doing all the driving with a very large steering wheel, which was somewhat difficult to navigate through some narrow areas. The patient reports that her shoulders and neck began to ache after they returned home, now significantly radiating to the left upper extremity, base of neck and shoulders, some on the right as well, but mostly on the left side, but radiating into the posterior and anterior deltoid, lateral deltoid, biceps and triceps region, especially on the left side into the thumb and first finger on the left side greater than the right, but present bilaterally. The patient reports it is aching and dull, shooting, sharp at times, throbbing in the neck. The patient reports it awakens her from sleep about 2-3 times a night, does not affect her bowel or bladder control or ability to walk. She has done some exercises, which she is doing currently, which helped to a moderate extent. She has had some physical therapy in the past, which was not significantly improving the pain. The patient reports she is taking Tylenol as well as Motrin zjnn-[id number], both of which helped only to a small extent. The patient reports no motor deficits, but significant fatigability, especially with her left upper extremity, with any repetitive motions, driving a car, reaching overhead with her left hand, also some on the right hand, but much more on the left. The patient rates her disability rating from 0-10, 10 being the worst, is a 4 with family home responsibilities and social activity, 5 with her recreation, 1 with self-care, 0 with sexual behavior, and 0 with life support activities. The patient did have MRI scan of cervical spine showing multilevel degenerative changes, most severe at C5-C6 with a large posterior disk osteophyte complex, severe uncinate hypertrophy bilaterally resulting in severe left and moderate right foraminal stenosis. PAST MEDICAL HISTORY: Significant for arthritis, hypertension, and cataracts. PREVIOUS SURGERY: Include cataract extraction, 2 shoulder joint replacements, right knee replacement x 2 and ankle surgery in the past. CURRENT MEDICATIONS: Include verapamil, pioglitazone and vancomycin. ALLERGIES: THE PATIENT IS ALLERGIC TO IV CONTRAST. FAMILY HISTORY: No major medical problems or conditions that she is aware of. SOCIAL HISTORY: The patient does not drink alcohol, does not smoke, does not use any illegal, illicit or recreational drugs. She is , lives with her spouse, lives locally in [place], [place] and is currently retired. REVIEW OF SYSTEMS: The patient's review of systems is positive for those items mentioned in history of present illness. All systems reviewed and otherwise negative. It is complete, full and well documented on the patient's chart. PHYSICAL EXAMINATION: VITAL SIGNS: The patient's blood pressure is 171/99, pulse 76, respirations 18, temperature 98.2 degrees Fahrenheit, height is 5 feet 5 inches, and she weighs 197 pounds. GENERAL: The patient is awake, alert, oriented, appropriate, very pleasant demeanor. HEENT: Shows normocephalic, atraumatic. Extraocular movements are intact and symmetrical. Oral cavity: Mucous membranes moist and pink. Dentition is intact. NECK: Shows anterior throat supple without palpable lymphadenopathy noted. Swallow reflex symmetrical. CHEST: Shows normal on inspection. Breath sounds are clear bilaterally. No rales, rhonchi or wheezes auscultated. HEART: Shows S1, S2 clear. No murmurs auscultated. ABDOMEN: Obese, soft, nontender, and nondistended. No palpable organomegaly is noted. No rebound or guarding demonstrated. BACK: Shows spine grossly in the midline. Normal lumbar lordotic curvature and some mild increase in thoracic kyphosis and some minor flattening of lumbar lordosis. The patient's cervical paraspinous muscle shows symmetrical on inspection, on palpation shows some moderate tenderness diffusely bilaterally, but only diffusely without significant radiation. The patient does show good rotational motion of the cervical spine, both laterally past 45 degrees closer to 90 degrees without difficulty as well as extension and flexion without significant pain reported. EXTREMITIES: Upper extremities show deep tendon reflexes at 2+ in the biceps and triceps tendons. Motor exam is strong with 4/5 on the left, 5/5 on the right with head of it strength, biceps and triceps flexion likewise 4/5 left, 5/5 right. Peripheral pulses are 2+ radial, no peripheral edema is noted. Shoulder shrug is strong and intact without loss of strength on resistance as her abduction of shoulder is 90 degrees without loss of strength, but with significant pain in the base of the neck and the left shoulder and arm with some mild radiation into the biceps on the left with resistance. SKIN: Shows warm and dry, good turgor. No edema. No sores, rashes or bruising throughout. IMPRESSION: 1. This is a 75-year-old female with a history of increasing pain in base of neck and upper extremities for about a year and a half, worse over the past several months after extended driving experience. 2. MRI scan of cervical spine is noted. 3. Arthritis. 4. Hypertension. PLAN: Options were discussed with the patient including conservative medical managements, physical therapies and interventional techniques. She would like to pursue with interventional techniques. We discussed a cervical epidural steroid injection using description as well as anatomical models to describe the procedure. Risks were then discussed including, but not limited to bleeding, infection, possibility of epidural hematoma, subsequent neurological compromise, dural puncture, headaches, spinal cord and/or nerve damage, side effects of steroid medication and poor results regarding pain control. The patient understands and wished to proceed. The patient will return to clinic in approximately 2 weeks for followup. She was counseled on return appointment, activity level and side effects to be aware of. DIAGNOSES: Cervical radiculopathy with cervical degenerative disk disease and cervical spinal stenosis. PROCEDURE: Cervical epidural steroid injection, translaminar approach C6-C7 level using C-arm fluoroscopic guidance under sterile prep and drape using local anesthetic. MEDICATION INJECTED: A total of 120 mg Depo-Medrol plus and 5 mL of preservative-free normal saline and 2 mL of contrast. CONDITION AT DISCHARGE: Stable. The patient tolerated the procedure well, had no complications. PAGE WAYNE MD DR: MELISSA/ariela JOB#: [id number] / [id number] ELIZABETH Marcano MD
== END | disposition home or self-care (01) ==
LOC: PNCL 10:54
PROVIDERS: ATTEND Anesthesiology
DX: M50.123 Cervical disc disorder at C6-C7 level with radiculopathy (principal); M48.02 Spinal stenosis, cervical region; I10 Essential (primary) hypertension; M19.90 Unspecified osteoarthritis, unspecified site; Z79.899 Other long term (current) drug therapy
CPT/HCPCS: 62321; J1030; J1040; Q9965

== ENCOUNTER → 2020-04-03 | Outpatient (CLI) | payer MEDICARE, OTHER ==
--- NOTE | 2020-04-03 10:35 | PDOC ---
Progress Note - Pain Clinic Date of Service: DOS: DATE: 04/03/20 TIME: 10:30 Diagnosis: Dx: Cervical radiculopathy with cervical degenerative disc disease and cervical spinal stenosis History or Present Illness: HPI: 5-year-old female returns for follow-up status post cervical epidural injection x1. Patient reports approximately 75% improvement in the neck and shoulder pain especially in the right upper extremity. Patient reports he can increase her activity to greater ease and comfort doing house activities greater ease as well as working activities and selling quite a bit which is much more comfortable now. Patient reports she is sleeping well but is getting awaken her from sleep began over the past few days. Patient reports her pain is a 2 on a scale of 10 is worse with the past week 1 on average 0 to least as of 1 today. She reports no new motor or sensory deficits no new bowel or bladder incontinence or other complaints. Physical Exam: VS: Blood pressure is 150/90 pulse 77 respiration 16 temperature 97 point 90s Fahrenheit weight is 1 9 4 pounds. PE: PHYSICAL EXAMINATION: GENERAL: The patient is awake, alert, oriented, appropriate, very pleasant demeanor HEENT: Shows normocephalic, atraumatic. Extraocular movements are intact and symmetrical. Oral cavity: Mucous membranes moist and pink. Dentition is intact. NECK: Shows anterior throat supple without palpable lymphadenopathy noted. Swallow reflex symmetrical. CHEST: Shows normal on inspection. Breath sounds are clear bilaterally. HEART: Shows S1, S2 clear. No murmurs auscultated. ABDOMEN: Soft, nontender, nondistended. No palpable organomegaly is noted. No rebound or guarding demonstrated. BACK: Shows spine grossly in the midline. Normal-appearing cervical lordotic curvature. Patient has good rotation motion of the cervical spine both laterally greater than 45 degrees well is full extension full forward flexion without significant increase in pain. There is slightly increased thoracic kyphosis, some minor flattening of the lumbar lordotic curvature. The patient has good rotational motion of the lumbar spine, both laterally as well as extension and flexion without significant difficulty. No tenderness over the spinous processes, sacrum or sacroiliac regions. EXTREMITIES: upper extremities show deep tendon reflexes 2+ in the biceps and triceps tendons. Motor exam is 5 on a scale of 5 with right biceps and triceps flexion and 5/5 on the left. Peripheral pulses are 2+ radial. No peripheral edema is noted bilaterally. Upper extremities are warm and dry to touch, equal in color and appearance. The patient is able to raise her hands above her head without significant difficulty shows full rotation motion of the shoulders both actively and passively shows mild tenderness with resistance and shoulder shrug on the right greater than the left but without loss of strength on resistance. This is true with abduction of the shoulder 90 degrees as well.. SKIN: Shows warm and dry, good turgor. No edema. No sores, rashes or bruising throughout. Options were discussed with the patient. The patient's old chart was reviewed and current medication regimen updated. [] Procedure: Procedure: Options were discussed with the patient. Patient's old chart was reviewed as her current medication regimen updated current review of systems updated today as well. We will proceed with a second in the series cervical epidural steroid injection today with fluoroscopic guidance. Risks were discussed including but not limited to bleeding infection possibility of epidural hematoma and subsequent neurological compromise dural puncture headache spinal cord and or nerve damage side effects steroid medication and/guarding pain control. Patient understands wished to proceed. Patient return to clinic in approximately 2 weeks for follow-up. Medication Injected: Med Injected: Procedure cervical epidural steroid injection at the C6-7 level, using local anesthetic under sterile prep and drape using C-arm fluoroscopic guidance under local anesthesia medications injected ; 120 mg Depo-Medrol + 5 mL normal s gilberto and 2 mL contrast; condition at discharge is stable patient tolerated procedure well. and had no complications Condition at Discharge: Condition at Discharge: Patient was discharged in good and stable condition no complications immediately from the procedure. PAGE WAYNE MD Apr 03, 2020 10:35
== END | disposition home or self-care (01) ==
LOC: PNCL 09:55
PROVIDERS: ATTEND Anesthesiology
DX: M50.123 Cervical disc disorder at C6-C7 level with radiculopathy (principal); M48.02 Spinal stenosis, cervical region; Z88.8 Allergy status to other drugs, medicaments and biological substances; Z79.899 Other long term (current) drug therapy
CPT/HCPCS: 62321; J1030; J1040; Q9965

== ENCOUNTER → 2020-04-17 | Outpatient (CLI) | payer MEDICARE, OTHER ==
[~2020-04-17] MED LIST changes: +BUPIVACAINE MPF 0.25% 10 ML VIAL. ONE
--- NOTE | 2020-04-17 09:54 | PDOC ---
Progress Note - Pain Clinic Date of Service: DOS: DATE: 04/17/20 TIME: 09:47 Diagnosis: Dx: Cervical radiculopathy with cervical degenerative disc disease and cervical spinal stenosis Bilateral greater trochanteric bursitis History or Present Illness: HPI: 75-year-old female returns follow-up status post cervical epidural steroid injection x2. Patient was about 50% improvement overall is doing much better with her neck and shoulders and mobility is increased IT with greater ease and comfort is been walking greater distances sleeping better still some pain in the left greater than right shoulder and upper extremity with doing much better. Patient chief complaint today is bilateral lateral hip pain. Patient reports worse with walking standing changing positions especially abduction of the bilateral lower extremities at the hip. Patient reports no new motor or sensory deficits no new bowel bladder incontinence or other complaints. Patient rates her pain as a scale of 10 is a 4 today at its worst 3 on average and 0 at its l east and is a 4 today. Physical Exam: VS: Blood pressure is 143/82 pulse 70 respirations 18 temperature 98.3 degrees are now height is 5 feet 9 inches weight is 1 9 9 pounds PE: PHYSICAL EXAMINATION: GENERAL: The patient is awake, alert, oriented, appropriate, very pleasant demeanor HEENT: Shows normocephalic, atraumatic. Extraocular movements are intact and symmetrical. Oral cavity: Dentition is intact. NECK: Shows anterior throat supple without palpable lymphadenopathy noted. Swallow reflex symmetrical. CHEST: Shows normal on inspection. Breath sounds are clear bilaterally, no rales rhonchi or wheezes auscultated. HEART: Shows S1, S2 clear. No murmurs auscultated. ABDOMEN: Soft, nontender, nondistended. No palpable organomegaly is noted. No rebound or guarding demonstrated. BACK: Shows spine grossly in the midline. Normal-appearing cervical lordotic curvature. There is slightly increased thoracic kyphosis, some minor flattening of the lumbar lordotic curvature. Lumbar paraspinous muscles show symmetrical on inspection, on palpation shows some moderate tenderness diffusely throughout the upper, middle and lower distribution of the paraspinous muscles bilaterally without specific trigger points, without radiation of pain. The patient has good rotational motion of the lumbar spine, both laterally as well as extension and flexion without significant difficulty. No tenderness over the spinous processes, sacrum or sacroiliac regions. EXTREMITIES: Lower extremities show deep tendon reflexes 2+ in the patellar and tendo calcaneus tendons. Motor exam is 5 on a scale of 5 with right dorsiflexion, extension, quadriceps and hamstring flexion and 4/5 on the left. Peripheral pulses are 1+ posterior tibial. No peripheral edema is noted bilaterally. Lower extremities are warm and dry to touch, equal in color and appearance. Patient has significant tenderness with direct palpation over the greater trochanters bilaterally but without specific radiation. Patient is able to walk, stand on her toes without significant difficulty or loss of balance. Not using any assistive devices to ambulate SKIN: Shows warm and dry, good turgor. No edema. No sores, rashes or bruising throughout. Procedure: Procedure: Options were discussed with the patient. Patient's old chart was reviewed as her current medication regimen updated current review of systems updated today as well. We will proceed with bilateral trochanteric bursa injections of the greater trochanter with fluoroscopic guidance. Discussed including but not limited to bleeding infection possibility of intravascular injection sequelae spread local anesthetic and numbness side effects of steroid medication and poor results chronic pain control. Patient understands wished to proceed. Patient return to clinic in approximately 4 weeks for follow-up was counseled as to return appointment activity level and side effects to be aware. Medication Injected: Med Injected: Under sterile prep and drape patient in supine position using C-arm fluoroscopic guidance bilateral greater trochanters were visualized with C arm and using 1% lidocaine was topically anesthetized bilaterally the skin overlying each troch anter. Using a 25-gauge needle and direct fluoroscopic vision trochanteric bursa was then injected with 3 cc of 0.25 bupivacaine each for total of 6 cc, 120 mg Depo-Medrol -each 60 mg per side, after negative aspiration each side. Patient tolerated the procedure well had no complications. Condition at Discharge: Condition at Discharge: Condition at discharge is stable patient tolerated procedure well had no complications. PAGE WAYNE MD Apr 17, 2020 09:54
== END | disposition home or self-care (01) ==
LOC: PNCL 09:02
PROVIDERS: ATTEND Anesthesiology
DX: M70.62 Trochanteric bursitis, left hip (principal); M70.61 Trochanteric bursitis, right hip; M48.02 Spinal stenosis, cervical region; M50.10 Cervical disc disorder with radiculopathy, unspecified cervical region; I10 Essential (primary) hypertension; Z79.899 Other long term (current) drug therapy; Z88.8 Allergy status to other drugs, medicaments and biological substances
CPT/HCPCS: 20605; 77002; J1030; J1040; J3490; Q9965

== ENCOUNTER → 2020-07-10 | Outpatient (CLI) | payer MEDICARE, OTHER ==
[~2020-07-10] MED LIST changes: +AMLO-186 PO; -AMLO5TAB10 PO; -IOHEXOL 180 MG/ML 10 ML VIAL. ONE; -NABU750T PO; +NABU750T7 PO; -methylPREDNISolone ACETATE 80 MG/ML VIAL. ONE
--- NOTE | 2020-07-10 08:21 | PDOC ---
Progress Note - Pain Clinic Date of Service: DOS: DATE: 07/10/20 TIME: 08:17 Diagnosis: Dx: Cervical radiculopathy with cervical degenerative disc disease and cervical spinal stenosis Bilateral greater trochanteric bursitis Myofascial pain History or Present Illness: HPI: 75-year-old female returns follow-up status post bilateral greater trochanteric bursa injections as well as cervical epidural steroid injections with very good relief about 90% improvement after the trochanteric bursa injections. Patient reports she fell in April and cracked her pelvis in 2 places and does have MRI showing that in April. Patient reports that it was on the left side and since she has been overusing her right side had by report and has significant pain in the low and back and the right side of the gluteus into the lateral aspect of the thigh which is very firm and tender worse with sitting standing walking changing position especially putting all her weight on her right side patient reports that her trochanteric bursa is still doing much better but this is a new pain very different after fall. Patient rates pain is a 8 on scale 10 is worse over the past week 5 on average to its least is a 5 today described as aching and sharp piercing without significant radiation. Reports no loss of motor function but significant tenderness with change positions and has been waking her from sleep occasionally but not most nights. Physical Exam: VS: Blood pressure is 142/92 pulse 78 respirations 16 temperature 97.6 F height is 5 foot 5 inches weight is 196 pounds PE: PHYSICAL EXAMINATION: GENERAL: The patient is awake, alert, oriented, appropriate, very pleasant demeanor HEENT: Shows normocephalic, atraumatic. Extraocular movements are intact and symmetrical. Oral cavity: Mucous membranes moist and pink. NECK: Shows anterior throat supple without palpable lymphadenopathy noted. Swallow reflex symmetrical. CHEST: Shows normal on inspection. Breath sounds are clear bilaterally, no rales rhonchi or wheezes. HEART: Shows S1, S2 clear. No murmurs auscultated. ABDOMEN: Soft, nontender, nondistended, obese. No palpable organomegaly is noted. No rebound or guarding demonstrated. BACK: Shows spine grossly in the midline. Normal-appearing cervical lordotic curvature. There is slightly increased thoracic kyphosis, some minor flattening of the lumbar lordotic curvature. Lumbar paraspinous muscles show symmetrical on inspection, on palpation shows some moderate tenderness diffusely throughout the upper, middle and lower distribution of the paraspinous musculature right side showing significant tenderness very firm ropelike musculature in the low lumbar distribution firm tender consistent with trigger point areas of musculature, without radiation of pain. Patient's right gluteus shows very firm ropelike mixture as well in the superior medial and the lateral aspect also into the vastus lateralis and superior aspect on the right side very firm ropelike musculature consistent with trigger point areas of muscle. The patient has good rotational motion of the lumbar spine, both laterally as well as extension and flexion without significant difficulty. No tenderness over the spinous processes, sacrum or sacroiliac regions. EXTREMITIES: Lower extremities show deep tendon reflexes 2+ in the patellar and tendo calcaneus tendons. Motor exam is 5 on a scale of 5 with right dorsiflexi on, extension, quadriceps and hamstring flexion and 5/5 on the left. Peripheral pulses are 1+ posterior tibial. No peripheral edema is noted bilaterally. Lower extremities are warm and dry to touch, equal in color and appearance. SKIN: Shows warm and dry, good turgor. No edema. No sores, rashes or bruising throughout. Procedure: Procedure: Options were discussed with the patient. Patient chart was reviewed as her current medication regimen updated current review of systems updated today as well. We will proceed with trigger point injections of the identified musculature. Risks are discussed including but not limited to bleeding infection possibility of intravascular injection sequelae spondylolisthetic numbness side effects of steroid medication and portal scarring pain control. Patient understands wished to proceed. Patient return to clinic in approximately 2 weeks for follow-up was counseled as to return appointment activity level and side effects to be aware of. Medication Injected: Med Injected: Under sterile prep and drape patient in left lateral decubitus position right lumbar paraspinous posterior gluteus musculature and vastus lateralis on the right was sterilely prepped and draped in usual fashion, as identified, trigger points were injected using 25-gauge needle total of 7 cc 0.25% bupivacaine and total of 40 mg Depo-Medrol after negative aspiration each injection site. Patient tolerated the procedure well and had no complications. Condition at Discharge: Condition at Discharge: Condition at discharge is stable, patient tolerated procedure well and had no complications. PAGE WAYNE MD Jul 10, 2020 08:21
== END | disposition home or self-care (01) ==
LOC: PNCL 07:39
PROVIDERS: ATTEND Anesthesiology
DX: M50.10 Cervical disc disorder with radiculopathy, unspecified cervical region (principal); M48.02 Spinal stenosis, cervical region; M70.62 Trochanteric bursitis, left hip; M70.61 Trochanteric bursitis, right hip; M79.18 Myalgia, other site; I10 Essential (primary) hypertension; M19.90 Unspecified osteoarthritis, unspecified site; E11.9 Type 2 diabetes mellitus without complications; Z90.710 Acquired absence of both cervix and uterus; Z98.890 Other specified postprocedural states; Z79.899 Other long term (current) drug therapy; Z88.8 Allergy status to other drugs, medicaments and biological substances; Z91.041 Radiographic dye allergy status
CPT/HCPCS: 20552; J1030; J3490; 20553

== ENCOUNTER → 2020-08-31 | Outpatient (CLI) | payer MEDICARE, OTHER ==
[~2020-08-31] MED LIST changes: -BUPIVACAINE MPF 0.25% 10 ML VIAL. ONE; +MIRA25TA PO; +NABU750T11 PO; -NABU750T7 PO; -methylPREDNISolone ACETATE 40 MG/ML VIAL. ONE
--- NOTE | 2020-08-31 12:35 | KCIC ---
EXAM: DUAL ENERGY X-RAY ABSORPTIOMETRY (DEXA). HISTORY: Postmenopausal screening. FINDINGS: The lowest measured T-score is -0.8 in the left hip, based on a bone mineral density of 0.8 44 g/cm^2. Refer to the worksheets for full detail. No comparison examinations are available. IMPRESSION: 1. Normal. Bone mineral density yields a T-score of -1.0 or greater. Fracture risk is low. 2. FRAX report: Not calculated. METHODOLOGY: Dual energy x-ray absorptiometry was performed to measure bone mineral density. The foll owing analysis is based on the 2019 Official Positions of the International Society for Clinical Dens itometry: Measurements of the hips and the average of L1-L4 are preferred. When the spine and/or hip cannot be feasibly measured or interpreted, or in the setting of hyperparathyroidism, distal radial bone minera l density may be measured. The lumbar spine T-score is based on the average bone mineral density of L1-L4. In the setting of art ifact or anatomic abnormality, some lumbar levels may be excluded, and the remaining levels used for calculation. A single lumbar level is not used for diagnosis, and if only a single level is available for assessment, another anatomic site will be used to assign a diagnosis. The hip T-score is based on the bone mineral density measurement of the femoral neck or total proxima l femur of either side, whichever is lowest. Bilateral mean values are not used for diagnosis. The forearm T-score is derived from 33% of the distal radius of the nondominant forearm. Electronically signed by: An Chairez MD (08/31/2020 12:33 PM) [id number]
== END ==
LOC: KCIC DEXA 11:16
PROVIDERS: ATTEND Family Medicine
DX: N95.9 Unspecified menopausal and perimenopausal disorder (principal)
CPT/HCPCS: 77080

== ENCOUNTER → 2020-09-22 | Outpatient (CLI) | payer MEDICARE, OTHER ==
[~2020-09-22] MED LIST changes: +BUPIVACAINE MPF 0.25% 10 ML VIAL. ONE; -MIRA25TA PO; -NABU750T11 PO; +NABU750T7 PO; +methylPREDNISolone ACETATE 80 MG/ML VIAL. ONE
--- NOTE | 2020-09-22 08:47 | PDOC ---
Progress Note - Pain Clinic Date of Service: DOS: DATE: 09/22/20 TIME: 08:42 Diagnosis: Dx: Cervical radiculopathy with cervical degenerative disease and cervical spinal stenosis Bilateral greater trochanteric bursitis Myofascial pain History or Present Illness: HPI: 75-year-old female returns for follow-up status post cervical epidural steroid injections as well as greater trochanteric bursa injections most recently on April 17, 2020. Patient did have trigger point injections after that for her right hip was doing much better by 80% improved July 10, 2020. Patient reports now the hips are beginning to become more painful on the sides of the hips radiating to the lateral thighs bilaterally right essentially equal to left consistent with her trochanteric bursitis. Patient reports is worse with walking standing change position especially getting up from a seated position and she feels it equal right and left patient reports her pain is a 4 on a scale of 10 is worse with past week for an average 0 its least is a 4 today patient ports is aching and dull radiating and shooting on the lateral thighs to the area of the knee. Patient reports no new motor or sensory deficits does not awaken her from sleep at night no new bowel or bladder incontinence or other complaints except for some significant pain in the base the neck and shoulders with some radicular pain which she has had previously as well. Physical Exam: VS: Blood pressure is 177/111 pulse 96 respirations 18 temperature 98.0 F height is 5 feet 5 inches weight is 199 pounds PE: PHYSICAL EXAMINATION: GENERAL: The patient is awake, alert, oriented, appropriate, very pleasant demeanor HEENT: Shows normocephalic, atraumatic. Extraocular movements are intact and symmetrical. Oral cavity: Mucous membranes moist and pink. NECK: Shows anterior throat supple without palpable lymphadenopathy noted. Swallow reflex symmetrical. CHEST: Shows normal on inspection. Breath sounds are clear bilaterally, no rales or rhonchi. HEART: Shows S1, S2 clear. No murmurs auscultated. ABDOMEN: Soft, nontender, nondistended, obese. No palpable organomegaly is noted. No rebound or guarding demonstrated. BACK: Shows spine grossly in the midline. Normal-appearing cervical lordotic curvature. Cervical paraspinous muscles show symmetrical inspection on palpation some moderate tenderness diffusely in the lower distribution the paraspinous musculature bilaterally right equal to left but without asymmetry and without specific trigger points. Patient shows full rotation of motion both laterally as well as extension flexion with only mild tenderness. There is slightly increased thoracic kyphosis, some minor flattening of the lumbar lordotic curvature. EXTREMITIES: Lower extremities show deep tendon reflexes 2+ in the patellar and tendo calcaneus tendons. Motor exam is 5 on a scale of 5 with right dorsiflexion, extension, quadriceps and hamstring flexion and 5/5 on the left. Peripheral pulses are 1+ posterior tibial. No peripheral edema is noted bilaterally. Lower extremities are warm and dry to touch, equal in color and appearance. Patient's lower extremity greater trochanteric bursa significantly tender with palpation bilaterally right equal to left without specific radiation but very tender over the greater trochanteric bursa itself. Upper extremities show deep tendon reflexes 2+ in the bicep and tricep tendons, motor exam is strong with credit verifier strength rated 5 out of 5 as is biceps and triceps flexion. Peripheral pulses are 2+ radial bilaterally. SKIN: Shows warm and dry, good turgor. No edema. No sores, rashes or bruising throughout. Procedure: Procedure: Options were discussed with the patient. Patient will chart reviews her current medication regimen updated current review of systems updated today as well. We will proceed with bilateral greater trochanteric bursa injections today with fluoroscopic guidance. Risk were discussed including but not limited to bleeding infection possibility of intravascular injection sequelae spread local anesthetic numbness side effects steroid medication exposure fluoroscopy and portal scarring pain control. Patient understands wished to proceed. Patient return to clinic in approximately 2 weeks for follow-up, was counseled as to return appointment activity level and side effects to be aware of. Medication Injected: Med Injected: Under sterile prep and drape patient in supine position greater trochanteric bursa were identified right first and left using 1% lidocaine area over the bursa was anesthetized at the skin and using a 25-gauge needle was injected under direct fluoroscopic vision both right and left after negative aspiration. Total of 3 cc 0.25% bupivacaine each side for total of 6 cc and a total of 80 mg Depo-Medrol, 40 mg per side was injected. Patient tolerated the procedure well had no complications. Condition at Discharge: Condition at Discharge: Condition at discharge is stable, patient tolerated procedure well had no complications. PAGE WAYNE MD Sep 22, 2020 08:47
--- NOTE | 2020-09-22 08:48 | PDOC4 ---
PROCEDURE Procedure Patient was consented for bilateral greater trochanteric bursa injections. Discussed including but not limited to bleeding infection possibility of intravascular injection and sequelae, spread of local anesthetic numbness, side effects of steroid medication, exposure fluoroscopy, and poor results running pain control. Patient understands wished to proceed. Under sterile prep and drape patient in supine position greater trochanteric bursa were identified right first and left using 1% lidocaine area over the bursa was anesthetized at the skin and using a 25-gauge needle was injected under direct fluoroscopic vision both right and left after negative aspiration. Total of 3 cc 0.25% bupivacaine each side for total of 6 cc and a total of 80 mg Depo-Medrol, 40 mg per side was injected. Patient tolerated the procedure well had no complications. PAGE WAYNE MD Sep 22, 2020 08:48
== END | disposition home or self-care (01) ==
LOC: PNCL 07:56
PROVIDERS: ATTEND Anesthesiology
DX: M70.62 Trochanteric bursitis, left hip (principal); M70.61 Trochanteric bursitis, right hip; M50.10 Cervical disc disorder with radiculopathy, unspecified cervical region; M48.02 Spinal stenosis, cervical region; M79.10 Myalgia, unspecified site; I10 Essential (primary) hypertension; E11.9 Type 2 diabetes mellitus without complications; M19.90 Unspecified osteoarthritis, unspecified site; Z90.710 Acquired absence of both cervix and uterus; Z98.890 Other specified postprocedural states; Z79.899 Other long term (current) drug therapy; Z91.041 Radiographic dye allergy status; Z88.8 Allergy status to other drugs, medicaments and biological substances
CPT/HCPCS: 20610; 77002; J1040; J3490; 20605

== ENCOUNTER → 2020-10-07 | Outpatient (CLI) | payer MEDICARE, OTHER ==
[~2020-10-07] MED LIST changes: -BUPIVACAINE MPF 0.25% 10 ML VIAL. ONE; +methylPREDNISolone ACETATE 40 MG/ML VIAL. ONE
--- NOTE | 2020-10-07 10:10 | PDOC ---
Progress Note - Pain Clinic Date of Service: DOS: DATE: 10/07/20 TIME: 10:06 Diagnosis: Dx: Cervical radiculopathy with cervical degenerative disease and cervical spinal stenosis Greater trochanteric bursitis Myofascial pain History or Present Illness: HPI: 75-year-old female returns follow-up status post bilateral greater trochanteric bursa injections on September 22, 2020. Patient reports did very well with about 95% improvement her chief complaint today is neck and bilateral shoulder pain worse on the left than the right with pain in the base the neck and shoulders rating to the left upper extremity biceps and into the forearm into the fingers and hand on the left side specially in the third and fourth and fifth fingers. Patient reports is worse with repetitive motions raising her arms above her head disturbed sleeping occasionally but not most nights is sharp in quality with radiating pain shooting sometimes burning and cramping as well as some stabbing pain in the base the neck itself. Patient rates her pain is a 3 on scale 10 is worse with the past week 3 on average and a 0 its least is a 3 today. Patient reports no new motor or sensory deficits no new changes. Patient has been increasing her activity with walking and standing especially changing positions much easier with the hips after last treatment as well. Physical Exam: VS: Blood pressure is 152/84 pulse 78 respirations 18 temperature 98.1 F height is 5 feet 5 inches weight is 193 pounds PE: PHYSICAL EXAMINATION: GENERAL: The patient is awake, alert, oriented, appropriate, very pleasant demeanor HEENT: Shows normocephalic, atraumatic. Extraocular movements are intact and symmetrical. Oral cavity: Mucous membranes moist and pink. NECK: Shows anterior throat supple without palpable lymphadenopathy noted. Swallow reflex symmetrical. CHEST: Shows normal on inspection. Breath sounds are clear bilaterally, no rales or rhonchi. HEART: Shows S1, S2 clear. No murmurs auscultated. ABDOMEN: Soft, nontender, nondistended, obese. No palpable organomegaly is noted. BACK: Shows spine grossly in the midline. Normal-appearing cervical lordotic curvature. Cervical paraspinous muscles show symmetrical on inspection, with palpation shows some moderate tenderness diffusely bilaterally in the superior medial and inferior aspect of the cervical paraspinous muscles mostly in the inferior aspect and some in the superior medial trapezius more on the left than the right but no trigger points without atrophy hypertrophy. Patient has good rotation motion cervical spine both laterally as well as full extension full forward flexion without significant exacerbation of pain. There is slightly increased thoracic kyphosis, some minor flattening of the lumbar lordotic curvature. EXTREMITIES: Upper extremities show deep tendon reflexes 2+ in the biceps and triceps tendons. Motor exam is 5 on a scale of 5 with right manager logistic strength, biceps and triceps flexion and 5/5 on the left. Peripheral pulses are 2+ radial. No peripheral edema is noted bilaterally. Upper extremities are warm and dry to touch, equal in color and appearance. SKIN: Shows warm and dry, good turgor. No edema. No sores, rashes or bruising throughout. Procedure: Procedure: Options discussed with the patient. Patient will chart reviews her current medication regimen updated current review of systems updated today as well. We will proceed with a cervical epidural steroid injection today with fluoroscopic guidance. Risks were discussed including but not limited to: Bleeding, infection, possibility of epidural hematoma and subsequent neurological compromise, dural puncture, headaches, spinal cord and/or nerve damage, side effects of steroid medication, and poor results regarding pain control. Patient understands and wished to proceed. Patient will return to clinic in approximate 2 weeks for follow-up, was counseled as to return appointment activity level and side effects to be aware of. Medication Injected: Med Injected: Procedure cervical epidural steroid injection at the C6-7 level, using local anesthetic under sterile prep and drape using C-arm fluoroscopic guidance under local anesthesia medications injected ; 120 mg Depo-Medrol + 5 mL normal sa line and 2 mL contrast; condition at discharge is stable patient tolerated procedure well. and had no complications Condition at Discharge: Condition at Discharge: Condition at discharge stable, patient tolerated procedure well and had no complications. PAGE WAYNE MD Oct 07, 2020 10:10
--- NOTE | 2020-10-07 10:11 | PDOC4 ---
PROCEDURE Procedure Patient was consented for cervical epidural steroid injection. Risks were d iscussed including but not limited to: Bleeding, infection, possibility of epidural hematoma and subsequent neurological compromise, dural puncture, headaches, spinal cord and/or nerve damage, side effects of steroid medication, and poor results regarding pain control. Patient understands and wished to proceed. Procedure cervical epidural steroid injection at the C6-7 level, using local anesthetic under sterile prep and drape using C-arm fluoroscopic guidance under local anesthesia medications injected ; 120 mg Depo-Medrol + 5 mL normal saline and 2 mL contrast; condition at discharge is stable patient tolerated procedure well. and had no complications PAGE WAYNE MD Oct 07, 2020 10:11
== END | disposition home or self-care (01) ==
LOC: PNCL 09:28
PROVIDERS: ATTEND Anesthesiology
DX: M50.10 Cervical disc disorder with radiculopathy, unspecified cervical region (principal); M48.02 Spinal stenosis, cervical region; M70.60 Trochanteric bursitis, unspecified hip; M79.18 Myalgia, other site; I10 Essential (primary) hypertension; E11.9 Type 2 diabetes mellitus without complications; M19.90 Unspecified osteoarthritis, unspecified site; Z90.710 Acquired absence of both cervix and uterus; Z98.890 Other specified postprocedural states; Z79.899 Other long term (current) drug therapy; Z91.041 Radiographic dye allergy status; Z88.8 Allergy status to other drugs, medicaments and biological substances
CPT/HCPCS: 62321; J1030; J1040

== ENCOUNTER → 2020-12-18 | Outpatient (CLI) | payer MEDICARE, OTHER ==
[~2020-12-18] MED LIST changes: +BUPIVACAINE MPF 0.25% 10 ML VIAL. ONE; +IOHEXOL 180 MG/ML 10 ML VIAL. ONE; +MIRA25TA PO; +NABU750T11 PO; -NABU750T7 PO
--- NOTE | 2020-12-18 11:38 | PDOC ---
Progress Note - Pain Clinic Date of Service: DOS: DATE: 12/18/20 TIME: 11:33 Diagnosis: Dx: Bilateral greater trochanteric bursitis Cervical radiculopathy with cervical degenerative disease and cervical spinal stenosis Myofascial pain History or Present Illness: HPI: 75-year-old female returns follow-up status post cervical epidural steroid traction x1 on October 07, 2020. Patient reports he did well with this with about a 75% improvement initially about 25% overall patient reports no new motor or sensory deficits no bowel or bladder incontinence still her main complaint today is bilateral lateral hip pain. Patient reports is worse with walking standing changing position especially with abduction of the lower extremities right or left somewhat worse on the right side present bilaterally patient reports her neck is doing much better she is pleased with the reduction in pain she has they are better hips are the most pressing concern at this time. Patient rates her pain is a 4 on a scale 10 is worse over the past week 2 on average 0 its least is a pulse with walking standing changing position especially getting up from a seated position getting out of bed generally better with laying down but can awaken her from sleep and does not usually not every night. Patient reports no new motor or sensory deficits no new bowel or bladder incontinence or other complaints. Physical Exam: VS: Blood pressure is 149/93 pulse 93 respirations 18 temperature 98.5 F weight is 195 pounds PE: PHYSICAL EXAMINATION: GENERAL: The patient is awake, alert, oriented, appropriate, very pleasant demeanor HEENT: Shows normocephalic, atraumatic. Extraocular movements are intact and symmetrical. Oral cavity: Mucous membranes moist and pink. Dentition is intact. NECK: Shows anterior throat supple without palpable lymphadenopathy noted. Swallow reflex symmetrical. CHEST: Shows normal on inspection. Breath sounds are clear bilaterally, no rales rhonchi or wheezes auscultated. HEART: Shows S1, S2 clear. No murmurs auscultated. ABDOMEN: Soft, nontender, nondistended, obese. No palpable organomegaly is noted. No rebound or guarding demonstrated. BACK: Shows spine grossly in the midline. Normal-appearing cervical lordotic curvature. Cervical paraspinous muscles show symmetrical on inspection with palpation some mild tenderness only diffusely in the inferior aspect the cervica l paraspinous posture and superior medial trapezius but without radiation without atrophy or hypertrophy patient shows good rotation motion cervical spine both laterally as well as extension flexion without significant difficulty. There is slightly increased thoracic kyphosis, some minor flattening of the lumbar lordotic curvature. Lumbar paraspinous muscles show symmetrical on i nspection, on palpation shows some moderate tenderness diffusely throughout the upper, middle and lower distribution of the paraspinous muscles without specific trigger points, without radiation of pain. The patient has good rotational motion of the lumbar spine, both laterally as well as extension and flexion without significant difficulty. EXTREMITIES: Lower extremities show deep tendon reflexes 2+ in the patellar and tendo calcaneus tendons. Motor exam is 5 on a scale of 5 with right dorsiflexion, extension, quadriceps and hamstring flexion and 5/5 on the left. Peripheral pulses are 1 posterior tibial. No peripheral edema is noted bilaterally. Lower extremities are warm and dry to touch, equal in color and appearance. Patient shows significant tenderness over the greater trochanters bilaterally slightly more tender on the right than left but present bilaterally with very significant pain with radiation into the lateral aspect of the thigh to the knee more on the right than the left but present as well bilaterally. Upper extremities show deep tendon reflexes 2+ in the bicep tricep tendons, motor exam strong with college administrator strength rated 5 out of 5 as is biceps triceps flexion. Peripheral pulses are 2+ radial bilaterally. SKIN: Shows warm and dry, good turgor. No edema. No sores, rashes or bruising throughout. Procedure: Procedure: Options discussed with the patient. Patient chart reviews her current medication regimen updated current review of systems updated today as well. We will proceed with bilateral greater trochanteric bursa injections with fluoroscopic guidance today. Risk were discussed including but not limited to bleeding infection possibility of intravascular injection sequelae spread local anesthetic numbness side effects steroid medication exposure to fluoroscopy and portals regarding pain control. Patient understands wished to proceed. Patient return to clinic in approximately 2 weeks for follow-up, was counseled as to return appointment, activity level, and side effects to be aware of. Medication Injected: Med Injected: Patient in supine position under sterile prep and drape using C-arm fluoroscopic guidance patient's right and left greater trochanters were visualized. Using 1% lidocaine to anesthetize the skin over the greater trochanter a 25-gauge needle was then used to enter the greater trochanteric bursa under direct visualization with fluoroscopy bilaterally. Aspiration was noted to be negative at this time 1 cc of contrast, each side, was injected with good spread within the greater trochanteric bursa without washout without uptake. At this time solution containing 3 cc of 0.25 bupivacaine and 60 mg Depo-Medrol each side was injected. [place] were withdrawn and sterile bandages were applied. Patient tolerated procedure well and had no complications. Condition at Discharge: Condition at Discharge: Condition at discharge stable, patient alert the procedure well and had no complications. PAGE WAYNE MD Dec 18, 2020 11:38
== END | disposition home or self-care (01) ==
LOC: PNCL 10:25
PROVIDERS: ATTEND Anesthesiology
DX: M70.62 Trochanteric bursitis, left hip (principal); M70.61 Trochanteric bursitis, right hip; M50.10 Cervical disc disorder with radiculopathy, unspecified cervical region; M48.02 Spinal stenosis, cervical region; M79.18 Myalgia, other site; I10 Essential (primary) hypertension; E11.9 Type 2 diabetes mellitus without complications; M19.90 Unspecified osteoarthritis, unspecified site; Z90.710 Acquired absence of both cervix and uterus; Z98.890 Other specified postprocedural states; Z79.899 Other long term (current) drug therapy; Z91.041 Radiographic dye allergy status; Z88.8 Allergy status to other drugs, medicaments and biological substances
CPT/HCPCS: 20610; 77002; J1030; J1040; J3490; Q9965; 20605-50

== ENCOUNTER → 2021-03-09 | Outpatient (CLI) | payer MEDICARE, OTHER ==
--- NOTE | 2021-03-09 11:19 | PDOC ---
Progress Note - Pain Clinic Date of Service: DOS: DATE: 03/09/21 TIME: 11:11 Diagnosis: Dx: Bilateral greater trochanteric bursitis Cervical radiculopathy with cervical degenerative disease and cervical spinal stenosis Myofascial pain History or Present Illness: HPI: 76-year-old female returns for follow-up status post bilateral greater trochanteric bursa injections last seen December 18, 2020. Patient reports about 80% improvement for 3months with most increased ability to walk stand change positions sleeping better patient reports the pain is returning now over the past 2 to 3weeks increasing with walking and standing changing positions especially standing from a seated position patient reports does not awaken her from sleep at this time but she is trying to get ahead of the pain and it is becoming more noticeable patient reports a 3 to a scale of 10 at all times worst least and average is a 3 today described as aching and tight in the lateral aspect of the hips and thighs with walking and changing positions sometimes burning and stabbing as well. Patient also can reports increased pain base the neck and shoulders which is beginning to get more noticeable in the shoulders himself and some radiation the bilateral upper extremities more on the right than the left and present bilaterally without significant weakness in the upper extremities. Patient reports new medication Myrbetriq since her last visit for urinary frequency. Physical Exam: VS: Blood pressure is 150/101 pulse 78 respirations are 18 temperature is 98.1 F height is 1 feet 5 inches weight is 199 pounds PE: PHYSICAL EXAMINATION: GENERAL: The patient is awake, alert, oriented, appropriate, very pleasant in demeanor. HEENT: Shows normocephalic, atraumatic. Extraocular movements are intact and symmetrical. Oral cavity: Mucous membranes moist and pink. NECK: Shows anterior throat supple without palpable lymphadenopathy noted. Swallow reflex symmetrical. CHEST: Shows normal on inspection. Breath sounds are clear bilaterally, distant but no rales or rhonchi. HEART: Shows S1, S2 clear. No murmurs auscultated. ABDOMEN: Soft, nontender, nondistended, obese. BACK: Shows spine grossly in the midline. Normal-appearing cervical lordotic curvature. Cervical paraspinous muscles show symmetrical inspection on palpation some mild tenderness in the inferior aspect the cervical paraspinous musculature as well as in the right greater than left superior medial trapezius without trigger points or radiation. Patient shows good rotation motion cervical spine both laterally greater than 45 degrees as well as full extension and full forward flexion without significant difficulty. There is slightly increased thoracic kyphosis, some minor flattening of the lumbar lordotic curvature. Lumbar paraspinous muscles show symmetrical on inspection, on palpation shows some moderate tenderness diffusely throughout the upper, middle and lower distribution of the paraspinous muscles without specific trigger points, without radiation of pain. The patient has good rotational motion of the lumbar spine, both laterally as well as extension and flexion without significant difficulty. No tenderness over the spinous processes, sacrum or sacroiliac regions. EXTREMITIES: Lower extremities show deep tendon reflexes 2+ in the patellar and tendo calcaneus tendons. Motor exam is 5 on a scale of 5 with right dorsiflexion, extension, quadriceps and hamstring flexion and 5/5 on the left. Peripheral pulses are 1+ posterior tibial. No peripheral edema is noted bilaterally. Lower extremities are warm and dry to touch, equal in color and appearance. Patient shows significant tenderness over the greater trochanters bilaterally very sensitive very tender with withdrawing from the examining hand with moderate palpation right and left. No radiation is demonstrated. Upper extremity show deep tendon reflexes 2+ in the bicep tricep tendons, motor exam is strong with vp ancillary strength rated 5 out of 5 as is bicep and tricep flexion. Peripheral pulses are 2+ radial. Shoulder shrug is strong and intact without loss of strength on resistance but with some moderate pain on the right compared to the left this is true with abduction of the shoulder 90 degrees without loss of strength again pain right base of the neck and shoulder laterally nontender on the left. SKIN: Shows warm and dry, good turgor. No edema. No sores, rashes or bruising throughout. Procedure: Procedure: Options were discussed with patient. Patient chart reviewed as her current medication regimen updated current review of systems updated today as well. We will proceed with bilateral greater trochanteric bursa injections today with fluoroscopic guidance. Risk were discussed including but not limited to bleeding infection possibility of intravascular injection sequelae spread of local anesthetic numbness side effects steroid medication exposure fluoroscopy and portals regarding pain control. Patient understands wished to proceed. Return to clinic in approximate 4 weeks for follow-up, was counseled as return appointment activity level and side effects to be aware of. Also discussed patient's cervical radicular pain and if significant pain increasing will have her return prior to this for evaluation and treatment as well. Medication Injected: Med Injected: Under sterile prep and drape patient in supine position bilateral greater trochanters were visualized using C-arm fluoroscopic guidance. Using 1% lidocaine area lateral to the greater trochanter was topically anesthetized. Using 25-gauge needle under direct fluoroscopic visualization the greater trochanteric bursa was injected after negative aspiration without difficulty. A total of 4 cc 0.25% ropivacaine and 60 mg Depo-Medrol was injected at each side for a total of 120 mg Depo-Medrol and 8 cc of 0.25% bupivacaine. Patient already procedure well had no complications. Condition at Discharge: Condition at Discharge: Condition at discharge stable, patient already procedure well and had no complications. PAGE WAYNE MD Mar 09, 2021 11:19
--- NOTE | 2021-03-09 11:20 | PDOC4 ---
Procedure Note: Procedure Note: Patient was consented for bilateral greater trochanteric bursa injections with fluoroscopic guidance. Risk were discussed including but not limited to bleeding infection possibility of intravascular injection sequelae spread local anesthetic numbness side effects steroid medication exposure fluoroscopy and poor control. Patient understands wished to proceed. Under sterile prep and drape patient in supine position bilateral greater trochanters were visualized using C-arm fluoroscopic guidance. Using 1% lidocaine area lateral to the greater trochanter was topically anesthetized. Using 25-gauge needle under direct fluoroscopic visualization the greater trochanteric bursa was injected after negative aspiration without difficulty. A total of 4 cc 0.25% ropivacaine and 60 mg Depo-Medrol was injected at each side for a total of 120 mg Depo-Medrol and 8 cc of 0.25% bupivacaine. Patient already procedure well had no complications. PAGE WAYNE MD Mar 09, 2021 11:20
== END | disposition home or self-care (01) ==
LOC: PNCL 10:07
PROVIDERS: ATTEND Anesthesiology
DX: M70.62 Trochanteric bursitis, left hip (principal); M70.61 Trochanteric bursitis, right hip; M50.10 Cervical disc disorder with radiculopathy, unspecified cervical region; M48.02 Spinal stenosis, cervical region; M79.18 Myalgia, other site; I10 Essential (primary) hypertension; E11.9 Type 2 diabetes mellitus without complications; M19.90 Unspecified osteoarthritis, unspecified site; Z90.710 Acquired absence of both cervix and uterus; Z98.890 Other specified postprocedural states; Z91.041 Radiographic dye allergy status; Z88.8 Allergy status to other drugs, medicaments and biological substances; Z79.899 Other long term (current) drug therapy
CPT/HCPCS: 20610; 77002; J1030; J1040; J3490; Q9965

== ENCOUNTER → 2021-05-05 | Outpatient (CLI) | payer MEDICARE, OTHER ==
[~2021-05-05] MED LIST changes: -BUPIVACAINE MPF 0.25% 10 ML VIAL. ONE; +DOCU-109 PO; +HYDR-2761 PO; -IOHEXOL 180 MG/ML 10 ML VIAL. ONE; +METH-562 PO; +POTA8CAP19 PO; +POTA99TA3 PO; -methylPREDNISolone ACETATE 40 MG/ML VIAL. ONE; -methylPREDNISolone ACETATE 80 MG/ML VIAL. ONE
[2021-05-05 14:31] LABS: BASO % 0 % (0-3); EOS # 0.2 x10^3/uL (0.0-0.7); EOS % 4 % (0-3); HEMATOCRIT 38.2 % (36.0-47.0); HEMOGLOBIN 13.4 g/dL (12.0-15.5); LYMPH # 1.4 x10^3/uL (1.0-4.8); LYMPH % 25 % (24-48); MEAN CORPUSCULAR HEMOGLOBIN 33 pg (25-35); MEAN CORPUSCULAR HGB CONC 35 g/dL (31-37); MEAN CORPUSCULAR VOLUME 93 fL (79-100); MONO # 0.5 x10^3/uL (0.0-1.1); MONO % 9 % (0-9); NEUT # 3.5 x10^3/uL (1.8-7.7); NEUT % 62 % (31-73); PLATELET COUNT 155 x10^3/uL (140-400); RED CELL DISTRIBUTION WIDTH 12.9 % (11.5-14.5); WHITE BLOOD COUNT 5.5 x10^3/uL (4.0-11.0)
[2021-05-05 14:54] LABS: ALBUMIN 3.4 g/dL (3.4-5.0); ALBUMIN/GLOBULIN RATIO 0.9 (1.0-1.7); CALCIUM 8.8 mg/dL (8.5-10.1); GFR 54.2; POTASSIUM 4.2 mmol/L (3.5-5.1); TOTAL BILIRUBIN 0.4 mg/dL (0.2-1.0)
--- NOTE | 2021-05-05 15:18 | EKG ---
[facility] [address] [place] [address] Test Date: 2021-05-05 Test Time: 14:40:00 Pat Name: VICKY VILLAGRAN Department: Room: Gender: F Plow Mechanic: SUKUMAR : 1945 Requested By: SAGE GANT Order Number: [id number] Reading MD: Nino Burns MD Measurements Intervals [place] Rate: 66 P: 34 NC: 176 QRS: -22 QRSD: 74 T: 10 QT: 388 QTc: 408 Interpretive Statements SINUS RHYTHM Electronically Signed On 05-06-2021 8:48:39 CDT by Nino Burns MD
--- NOTE | 2021-05-11 15:27 | PREOP HP ---
DATE OF SERVICE: 05/12/2021 PREOPERATIVE HISTORY AND PHYSICAL HISTORY OF PRESENT ILLNESS: The patient is a pleasant 76-year-old who is having problems with neck pain and pain and weakness in both her arms. The left arm is much more affected than the right. She says her arms ache constantly. She has a tingling sensation in both of her hands, but especially in her thumbs, left worse than right. The problem has been present for a few years and has been slowly worsening. Initially, she said that she thought her problem was in her shoulders and underwent shoulder surgery bilaterally, which did not help her significantly. She says her pain is mild today, but normally it is 6-7/10. Bending and activity increase her pain. Rest helps. 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 She underwent 3 epidural steroid injections, which gave her limited relief. She has had chiropractic treatment, which she said gave no significant relief. CURRENT MEDICATIONS: Potassium, amlodipine, Tylenol, citalopram, triamterene, hydrochlorothiazide. PAST MEDICAL HISTORY: Hypertension, kidney stones, C. difficile. PAST SURGICAL HISTORY: Total knee replacement, bilateral carpal tunnel release, 2 rotator cuff repairs, kyphoplasty, shoulder surgery, cholecystectomy, hysterectomy, ulnar nerve decompression. FAMILY HISTORY: Cancer, heart disease, hypertension. SOCIAL HISTORY: Retired, , does not smoke, does not drink alcohol. ALLERGIES: IV CONTRAST/DYE. REVIEW OF SYSTEMS: A 12-point review of systems was performed and is noncontributory except that mentioned above. PHYSICAL EXAMINATION: GENERAL: Alert, pleasant, in no acute distress. HEENT: Head normocephalic, atraumatic. NECK: [id number]-[id number] tenderness with palpation of the posterior cervical region. SKIN: Warm and dry. MUSCULOSKELETAL: Cervical paraspinal muscle bulk is normal, cervical range of motion is restricted, normal range of motion of the upper extremities bilaterally. EXTREMITIES: No clubbing, cyanosis or edema. NEUROLOGIC: Alert and oriented x 3. Strength is 5/5 in the bilateral upper and lower extremities. Sensory was intact to light touch in the upper and lower extremities. Reflexes were present and symmetric in the upper and lower extremities bilaterally except for absent biceps reflex bilaterally, unsteady gait. IMAGING: I reviewed her cervical MRI scan. On that study, there is multilevel cervical degenerative change, which is moderately severe. At C5-6, thecal sac measures about 7 mm with severe central stenosis along with severe bilateral neural foraminal narrowing. There is also right-sided neural foraminal narrowing at C4-5 and C6-7, which is severe. ASSESSMENT AND PLAN: At this point, she has failed conservative measures including epidural steroid injections and chiropractic treatment. Her pain is significant. It radiates into both of her thumbs. The left side is worse than the right. She has severe stenosis at C5-6 along with bilateral neural foraminal narrowing, worse on the left. At this point, I feel a single level anterior just cervical diskectomy and fusion centered at C5-6 would be of benefit for her. I explained that it may not solve all of her problems, but since the majority of her problems are on the left side, it would address that. I would also like to protect her because of the severe cervical stenosis from spinal cord injury should she fall due to her unsteadiness. I outlined the surgery and the risks involved and the expected postoperative course. She understands and would like to go ahead. YNES/JANIS/MADELIN DR: Temi TID: [id number]
== END ==
LOC: SURGPAT 13:48
PROVIDERS: ATTEND Neurological Surgery
DX: Z01.818 Encounter for other preprocedural examination (principal); M48.02 Spinal stenosis, cervical region
CPT/HCPCS: 36415; 80053; 85025; 87641; 93005

== ENCOUNTER 2021-05-12 10:27 | Inpatient (IN) | payer MEDICARE, OTHER ==
[2021-05-05 14:35] VITALS: BP 161/78
[2021-05-12] VITALS (7 sets, daily range): BP systolic 133–159; BP diastolic 64–83
[~2021-05-12] VITALS: Ht 162.6 cm; Wt 92.9 kg
[~2021-05-12 10:27] MED LIST changes: +BUPIVACAINE-EPI 0.5%-1:200000 MPF 30 ML VIAL. ONE; -DOCU-109 PO; +GELATIN SPONGE SIZE 100. ONE; -HYDR-2761 PO; +IV RINGERS,LACTATED 1000ML 1,000 ML IV SCH; -METH-562 PO; +PROCHLORPERAZINE 10 MG/2 ML VIAL. IVP PRN; +THROMBIN TOPICAL 20,000 UNIT SPRAY.SYRN KIT TP ONE; +ceFAZolin SODIUM 1 GM in IV NORMAL SALINE 1000ML BAG 1,000 ML IRR ONE; +fentaNYL PF VIAL 100 MCG/2 ML VIAL IVP PRN
[2021-05-12] MEDS ORDERED: PROPOFOL 10 MG/ML (20ML) VIAL. IV ONE (10:49)
[2021-05-12] MEDS ORDERED: DEXAMETHASONE SOD PHOS 20 MG/5 ML VIAL. ONE (10:49)
[2021-05-12] MEDS ORDERED: ONDANSETRON PF 4 MG/2 ML VIAL. ONE (10:49)
[2021-05-12] MEDS ORDERED: SUCCINYLCHOLINE 200 MG/10 ML VIAL. ONE (10:49)
[2021-05-12] MEDS ORDERED: LIDOCAINE 2% PF 5 ML VIAL. ONE (10:49)
[2021-05-12] MEDS ORDERED: fentaNYL PF VIAL 100 MCG/2 ML VIAL ONE ×2 (10:51→15:29)
[2021-05-12] MEDS ORDERED: SCOPOLAMINE 1.5MG PATCH. TD ONE (11:15)
[2021-05-12] MEDS ORDERED: REMIFENTANIL 2 MG VIAL. IV ONE (11:24)
[2021-05-12] MEDS ORDERED: PROPOFOL 50 ML IV ONE (11:24)
[2021-05-12] MEDS ORDERED: ROCURONIUM 50 MG/5 ML VIAL. ONE (12:19)
[2021-05-12] MEDS ORDERED: ePHEDrine PF IN SALINE 50 MG/10 ML SYRINGE. IV ONE (12:42)
[2021-05-12] MEDS ORDERED: fentaNYL PF VIAL 100 MCG/2 ML VIAL IVP PRN (13:15)
[2021-05-12] MEDS ORDERED: CALCIUM CARBONATE 500 MG TAB.CHEW PO PRN (13:15)
[2021-05-12] MEDS ORDERED: ACETAMINOPHEN 325 MG TABLET. PO PRN (13:15)
[2021-05-12] MEDS ORDERED: ONDANSETRON PF 4 MG/2 ML VIAL. IVP PRN (13:15)
[2021-05-12] MEDS ORDERED: MAGNESIUM HYDROXIDE 2,400 MG/30 ML ORAL.SUSP. PO PRN (13:15)
[2021-05-12] MEDS ORDERED: HYDROcodone/APAP 5/325MG 1 TAB TABLET PO PRN ×2 (13:15)
[2021-05-12] MEDS ORDERED: METHOCARBAMOL 750 MG TABLET PO PRN (13:15)
[2021-05-12] MEDS ORDERED: MAG HYDROX/ALUMINUM HYD/SIMETH 30 ML ORAL.SUSP PO PRN (13:15)
[2021-05-12] MEDS ORDERED: NALOXONE 0.4 MG/ML VIAL. IV PRN (13:15)
[2021-05-12] MEDS ORDERED: diphenhydrAMINE HCL 25 MG CAPSULE PO PRN (13:15)
[2021-05-12] MEDS ORDERED: 0.9 % SODIUM CHLORIDE 10 ML DISP.SYRIN. IV PRN (13:15)
[2021-05-12] MEDS: fentaNYL PF VIAL 100 MCG/2 ML VIAL IVP PRN ×2 (15:33→15:41)
[2021-05-12] MEDS ORDERED: MORPHINE SULFATE 2 MG/ML INJ. ONE (15:42)
[2021-05-12] MEDS: MORPHINE SULFATE 2 MG/ML INJ. IVP PRN ×2 (15:46→15:54)
[2021-05-12] MEDS ORDERED: PROCHLORPERAZINE 10 MG/2 ML VIAL. ONE (15:58)
[2021-05-12] MEDS ORDERED: HYDROmorphone 2 MG/ML VIAL ONE (15:58)
[2021-05-12] MEDS: HYDROmorphone 2 MG/ML VIAL IVP PRN ×4 (16:03→16:33)
--- NOTE | 2021-05-12 17:00 | OP ---
DATE OF SURGERY: 05/12/2021 PREOPERATIVE DIAGNOSES: Herniated cervical disc and disc osteophyte complex, C5-6 with severe cervical stenosis and cervical radiculopathy/myelopathy. POSTOPERATIVE DIAGNOSES: Herniated cervical disc and disc osteophyte complex, C5-6 with severe cervical stenosis and cervical radiculopathy/myelopathy. OPERATION PERFORMED: Anterior cervical microdiscectomy at C5-6, anterior cervical interbody fusion at C5-6, anterior cervical plate at C5-6. The fusion was done with allograft bone. The operation used monitoring including motor evoked potentials and SSEP. There was NIMS monitoring, EMG monitoring. Fluoroscopy and microscopy were also employed. SPECIMEN; Disc and decompression. SURGEON: Dallas Schroeder M.D. PRODUCTION CONTROL SPECIALIST: GONZALO Villanueva assisted with the surgery. She assisted with the exposure, the microdiscectomy, the interbody fusion as well as the plate and closure. OPERATIVE INDICATIONS: The patient is a pleasant 76-year-old who developed intractable neck and arm pain and was found to have severe stenosis at C5-6. She had some stenosis present at C4-5 and there was element of stenosis at C6-7, but felt the majority of the problem was C5-6 and I explained to her that I felt that this is best approach to deal with this currently. She understood the surgery, the rationale and expected postoperative course and wished to go ahead. DESCRIPTION OF PROCEDURE: Under general endotracheal anesthesia, the patient was positioned supine on the operating room table. The anterior cervical region was prepped and draped in a standard fashion. JUAN hose and AV impulse boots were applied for DVT prophylaxis. Microscope was draped. Fluoroscopy was draped and brought in the field. Monitoring was established. Ancef 2 grams was given less than 1 hour prior to initiation of the surgery. Using fluoroscopic guidance, an incision was made in the midline around to the right side in a skin crease. I dissected down through skin and subcutaneous tissue. I sharply divided the platysma and dissected around the medial aspect of sternocleidomastoid and carotid artery sheath down the anterior cervical vertebral bodies. I placed a [place] Microdisk retractors and brought in the microscope. I placed 14 mm pins in C5 and C6, distracting the disc space after incising the anterior annulus with a #11 blade. I performed a generous discectomy. There was considerable spurring and I drilled this away with high speed air drill. Posteriorly, I drilled the posterior spurring and then used 2 mm micro Kerrison to trim the annulus ligament and worked widely bilaterally to fully decompress. I was able to pass a blunt hook easily in the foramina. I then scraped cartilaginous endplate. I placed interbody fusion cage, which was packed with allograft bone, which I obtained perfect hemostasis prior to placement. I then placed a 12 mm anterior plate using the [place] spine system with four 14 mm screws, which were then locked. I irrigated copiously, removed the retractors and assured myself of perfect hemostasis and I closed the wound in layers with absorbable suture. The skin was closed with 4-0 subcuticular stitch. I felt the surgery went very well. VALERIA DR: Tam TID: [id number] JEANETTE
[2021-05-12] MEDS: POTASSIUM CL 20MEQ D5-0.45NACL 1,000 ML IV SCH (17:50)
[2021-05-12] MEDS: ceFAZolin SODIUM IV Push 1 GM VIAL. IVP SCH (22:01)
[2021-05-12] MEDS: DOCUSATE SODIUM 100 MG CAPSULE. PO SCH (22:02)
[2021-05-13] MEDS: POTASSIUM CL 20MEQ D5-0.45NACL 1,000 ML IV SCH ×2 (03:20→08:31)
[2021-05-13] MEDS: ceFAZolin SODIUM IV Push 1 GM VIAL. IVP SCH (05:00)
[2021-05-13 07:15] VITALS: BP 158/82
[2021-05-13] MEDS: DOCUSATE SODIUM 100 MG CAPSULE. PO SCH (08:34)
[2021-05-13] MEDS ORDERED: NON FORMULARY ITEM (Potassium Gluconate 99 MG) PO SCH (09:00)
[2021-05-13] MEDS ORDERED: CITALOPRAM 10 MG TABLET. PO SCH (09:00)
[2021-05-13] MEDS ORDERED: TRIAMTERENE/HCTZ 37.5/25MG TABLET. PO SCH (09:00)
[2021-05-13] MEDS ORDERED: MIRABEGRON 25 MG TAB.ER.24H PO SCH (09:00)
--- NOTE | 2021-05-13 09:20 | PREOP HP ---
DATE OF SERVICE: 05/12/2021 PREOPERATIVE HISTORY AND PHYSICAL HISTORY OF PRESENT ILLNESS: The patient is a pleasant 76-year-old who is having problems with neck pain and pain and weakness in both her arms. The left arm is much more affected than the right. She says her arms ache constantly. She has a tingling sensation in both of her hands, but especially in her thumbs, left worse than right. The problem has been present for a few years and has been slowly worsening. Initially, she said that she thought her problem was in her shoulders and underwent shoulder surgery bilaterally, which did not help her significantly. She says her pain is mild today, but normally it is 6-7/10. Bending and activity increase her pain. Rest helps. 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 She underwent 3 epidural steroid injections, which gave her limited relief. She has had chiropractic treatment, which she said gave no significant relief. CURRENT MEDICATIONS: Potassium, amlodipine, Tylenol, citalopram, triamterene, hydrochlorothiazide. PAST MEDICAL HISTORY: Hypertension, kidney stones, C. difficile. PAST SURGICAL HISTORY: Total knee replacement, bilateral carpal tunnel release, 2 rotator cuff repairs, kyphoplasty, shoulder surgery, cholecystectomy, hysterectomy, ulnar nerve decompression. FAMILY HISTORY: Cancer, heart disease, hypertension. SOCIAL HISTORY: Retired, , does not smoke, does not drink alcohol. ALLERGIES: IV CONTRAST/DYE. REVIEW OF SYSTEMS: A 12-point review of systems was performed and is noncontributory except that mentioned above. PHYSICAL EXAMINATION: GENERAL: Alert, pleasant, in no acute distress. HEENT: Head normocephalic, atraumatic. NECK: Dpsu-gi-hcskandn tenderness with palpation of the posterior cervical region. SKIN: Warm and dry. MUSCULOSKELETAL: Cervical paraspinal muscle bulk is normal, cervical range of motion is restricted, normal range of motion of the upper extremities bilaterally. EXTREMITIES: No clubbing, cyanosis or edema. NEUROLOGIC: Alert and oriented x 3. Strength is 5/5 in the bilateral upper and lower extremities. Sensory was intact to light touch in the upper and lower extremities. Reflexes were present and symmetric in the upper and lower extremities bilaterally except for absent biceps reflex bilaterally, unsteady gait. IMAGING: I reviewed her cervical MRI scan. On that study, there is multilevel cervical degenerative change, which is moderately severe. At C5-6, thecal sac measures about 7 mm with severe central stenosis along with severe bilateral neural foraminal narrowing. There is also right-sided neural foraminal narrowing at C4-5 and C6-7, which is severe. ASSESSMENT AND PLAN: At this point, she has failed conservative measures including epidural steroid injections and chiropractic treatment. Her pain is significant. It radiates into both of her thumbs. The left side is worse than the right. She has severe stenosis at C5-6 along with bilateral neural foraminal narrowing, worse on the left. At this point, I feel a single level anterior just cervical diskectomy and fusion centered at C5-6 would be of benefit for her. I explained that it may not solve all of her problems, but since the majority of her problems are on the left side, it would address that. I would also like to protect her because of the severe cervical stenosis from spinal cord injury should she fall due to her unsteadiness. I outlined the surgery and the risks involved and the expected postoperative course. She understands and would like to go ahead. YNES/JANIS/MADELIN DR: Temi TID: [id number] JEANETTE
[2021-05-13] MEDS ORDERED: METH-562 PO (09:42)
[2021-05-13] MEDS ORDERED: DOCU-109 PO (09:42)
[2021-05-13] MEDS ORDERED: HYDR-2761 PO (09:42)
--- NOTE | 2021-05-13 09:44 | DISCH ---
DISCHARGE INSTRUCTIONS Condition on Discharge Condition on Discharge: Stable Activity After Discharge Activity Instructions for Disc: Activity as tolerated, Avoid exertion Other activity instructions: no driving for a week, soft collar for comfort Bathing Instructions: Shower-keep dressing dry, No Tub Bath until see Lifting Instructions after Dis: No heavy lifting, No pulling or pushing, Do not lift >10 pounds Weight Bearing Status after Di: No restrictions, As tolerated Diet after Discharge Diet after Discharge: Cardiac Additional Diet Restrictions: soft diet Diet Texture: Regular Liquid Texture: Thin Liquid Swallowing Supervision: None needed Wound Incision Care Wound/Incision Care: Ice to area for comfort, Change dressing, Reinforce dressing PRN Other wound/incision instructi: may remove dressing in 48 hrs if dry Wound Care Equipment: Dressings Checks after Discharge Checks after discharge: Check blood press - daily Contacting the DRRene after DC Call your doctor for: Concerns you may have Follow-Up Follow up with: Dr. Gant's nurse in 2 weeks [phone] Treatment/Equipment after DC Adaptive Equipment Issued: None SAGE GANT MD May 13, 2021 09:44
[2021-05-13 11:05] VITALS: BP 141/69
--- NOTE | 2021-05-13 13:15 | NUR ---
Patient discharge home with self care today via ambulation, accompanied by this RN. Patient is stable, IV removed, and discharge paperwork given to patient. Patient verbalized understanding of followup and discharge instruction.
== END 2021-05-13 13:10 | disposition home or self-care (01) | DRG 472 ==
LOC: OPSVCIP 10:27 → 4 NORTH 16:57
PROVIDERS: ADMIT Neurological Surgery; ATTEND Neurological Surgery
PROC: 0RG10AJ Fusion of Cervical Vertebral Joint with Interbody Fusion Device, Posterior Approach, Anterior Column, Open Approach (ICD-10-PCS; 2021-05-12)
PROC: 4A11X4G Monitoring of Peripheral Nervous Electrical Activity, Intraoperative, External Approach (ICD-10-PCS; 2021-05-12)
PROC: 0RB30ZZ Excision of Cervical Vertebral Disc, Open Approach (ICD-10-PCS; principal; 2021-05-12 12:00)
DX: M48.02 Spinal stenosis, cervical region (principal); G99.2 Myelopathy in diseases classified elsewhere; I10 Essential (primary) hypertension; M25.78 Osteophyte, vertebrae; M50.10 Cervical disc disorder with radiculopathy, unspecified cervical region; Z82.49 Family history of ischemic heart disease and other diseases of the circulatory system; Z87.442 Personal history of urinary calculi; Z90.710 Acquired absence of both cervix and uterus; Z96.659 Presence of unspecified artificial knee joint; Z98.1 Arthrodesis status; G56.03 Carpal tunnel syndrome, bilateral upper limbs
CPT/HCPCS: 76000; 88304; A4222; A4223; A4364; A4556; A4930; A6254; A6258; C1713; C1821; J0330; J0690; J0780; J1100; J1170; J2270; J2405; J2704; J3010; J3480; J7030; J7120; 97116-GP; 97530-GP; G0378

== ENCOUNTER → 2021-06-15 | Outpatient (CLI) | payer MEDICARE, OTHER ==
[~2021-06-15] MED LIST changes: +BUPIVACAINE MPF 0.25% 10 ML VIAL. ONE; -BUPIVACAINE-EPI 0.5%-1:200000 MPF 30 ML VIAL. ONE; +DOCU-109 PO; -GELATIN SPONGE SIZE 100. ONE; +HYDR-2761 PO; -IV RINGERS,LACTATED 1000ML 1,000 ML IV SCH; +METH-562 PO; -PROCHLORPERAZINE 10 MG/2 ML VIAL. IVP PRN; -THROMBIN TOPICAL 20,000 UNIT SPRAY.SYRN KIT TP ONE; -ceFAZolin SODIUM 1 GM in IV NORMAL SALINE 1000ML BAG 1,000 ML IRR ONE; -fentaNYL PF VIAL 100 MCG/2 ML VIAL IVP PRN; +methylPREDNISolone ACETATE 40 MG/ML VIAL. ONE
--- NOTE | 2021-06-15 14:28 | PDOC ---
Progress Note - Pain Clinic Date of Service: DOS: DATE: 06/15/21 TIME: 14:24 Diagnosis: Dx: Cervical radiculopathy with cervical degenerative disease and cervical spinal stenosis Bilateral greater trochanteric bursitis Myofascial pain Left elbow olecranon bursitis History or Present Illness: HPI: 76-year-old female returns for follow-up status post bilateral greater trochanteric bursa injections last seen 03/09/2021 patient did very well with about a 75 to 80% improvement in the bilateral hips now beginning to be more noticeable with walking but her chief complaint is her left elbow has a significant pain after surgery anterior cervical discectomy and fusion was hoping that the pain was going to be relieved however still significant pain in the left elbow and radiating to the wrist on the left side patient reports its worse with repetitive motions lifting items reaching above her head with her left arm and weightbearing with bending the elbow and extending with weightbearing is most noticeable. Patient reports it wakes her from sleep at least every 6 hours but not every night patient reports no loss of motor function in the elbow itself with repetitive motions and lifting items as noted. Patient reports no bowel or bladder incontinence Physical Exam: VS: Blood pressure is 154/92 pulse 98 respirations are 16 temperature is 99.2F height is five 5 in weight is 200 lbs PE: PHYSICAL EXAMINATION: GENERAL: The patient is awake, alert, oriented, appropriate, very pleasant in demeanor HEENT: Shows normocephalic, atraumatic. Extraocular movements are intact and symmetrical. Oral cavity: Mucous membranes moist and pink. NECK: Shows anterior throat supple without palpable lymphadenopathy noted. Swallow reflex symmetrical. CHEST: Shows normal on inspection. Breath sounds are clear bilaterally. HEART: Shows S1, S2 clear. No murmurs auscultated. ABDOMEN: Soft, nontender, nondistended. No palpable organomegaly is noted. No rebound or guarding demonstrated. BACK: Shows spine grossly in the midline. Normal-appearing cervical lordotic curvature. Cervical paraspinous muscles show symmetrical inspection on palpation some very mild tenderness in the inferior aspect the cervical paraspinous muscles bilaterally, patient shows full rotation motion cervical spine with lateral as well as extension flexion without difficulty. There is slightly increased thoracic kyphosis, some minor flattening of the lumbar lordotic curvature. Lumbar paraspinous muscles show symmetrical on inspection, on palpation shows some moderate tenderness diffusely throughout the upper, middle and lower distribution of the paraspinous muscles without specific trigger points, without radiation of pain. The patient has good rotational motion of the lumbar spine, both laterally as well as extension and flexion without significant difficulty. No tenderness over the spinous processes, sacrum or sacroiliac regions. EXTREMITIES: Lower extremities show deep tendon reflexes two in the patellar and tendo calcaneus tendons. Motor exam is four on a scale of 5 with right dorsiflexion, extension, quadriceps and hamstring flexion and five/5 on the left. Peripheral pulses are 1+ posterior tibial. No peripheral edema is noted bilaterally. Lower extremities are warm and dry. Upper extremity show deep tendon reflexes 2+ in the bicep tricep tendons motor exam strong with financial reporting accountant strength rated 5 out of 5 as is bicep tricep flexion. Patient's left elbow shows significant tenderness over the medial aspect of the elbow over the olecranon bursa very tender to palpation with some mild radiation inferiorly into the lateral aspect of the forearm. Right side shows non tender SKIN: Shows warm and dry, good turgor. No edema. No sores, rashes or bruising throughout. Procedure: Procedure: Options were discussed with the patient. Patient chart reviews her current medication regimen updated current review of systems updated today as well. We will proceed with a left olecranon bursa injection of the left elbow. Risk were discussed including but not limited to bleeding infection possibility of intravascular injection sequelae spread local anesthetic and numbness side effects steroid medication portals regarding pain control. Patient understands wished to proceed. Patient return to clinic in approximately 2 weeks for follow-up, was counseled as return appointment activity level, and side effect to be aware. Medication Injected: Med Injected: Under sterile prep and drape patient seated position patient's left elbow was examined in the medial aspect of the elbow over the olecranon bursa was palpated and injected using a 25-gauge needle after negative aspiration for total of 3 cc 0.25% ropivacaine and 40 mg Depo-Medrol. Patient tolerated the procedure well and had no complications. Condition at Discharge: Condition at Discharge: Condition at discharge stable, paced tolerated procedure well and had no complications. PAGE WAYNE MD Jun 15, 2021 14:28
--- NOTE | 2021-06-15 14:29 | PDOC4 ---
Procedure Note: ICD 10 Code: ICD 10 Code: M70.22 Procedure Note: Patient was consented for left olecranon bursa injection. Risks discussed including but not limited to bleeding infection possibility of intravascular injection sequelae spread local anesthetic numbness side effects steroid medication, and poor results regarding pain control. Patient understands wished to proceed. Under sterile prep and drape patient seated position patient's left elbow was examined in the medial aspect of the elbow over the olecranon bursa was palpated and injected using a 25-gauge needle after negative aspiration for total of 3 cc 0.25% ropivacaine and 40 mg Depo-Medrol. Patient tolerated the procedure well and had no complications. PAGE WAYNE MD Jun 15, 2021 14:29
== END | disposition home or self-care (01) ==
LOC: PNCL 13:42
PROVIDERS: ATTEND Anesthesiology
DX: M70.22 Olecranon bursitis, left elbow (principal); M50.10 Cervical disc disorder with radiculopathy, unspecified cervical region; M48.02 Spinal stenosis, cervical region; M70.62 Trochanteric bursitis, left hip; M70.61 Trochanteric bursitis, right hip; M79.18 Myalgia, other site; I10 Essential (primary) hypertension; M19.90 Unspecified osteoarthritis, unspecified site; E11.9 Type 2 diabetes mellitus without complications; F32.9 Major depressive disorder, single episode, unspecified; Z90.49 Acquired absence of other specified parts of digestive tract; Z90.710 Acquired absence of both cervix and uterus; Z98.890 Other specified postprocedural states; Z79.899 Other long term (current) drug therapy; Z91.041 Radiographic dye allergy status; Z88.8 Allergy status to other drugs, medicaments and biological substances
CPT/HCPCS: 20605; J1030; J3490

== ENCOUNTER → 2021-06-24 | Outpatient (CLI) | payer MEDICARE, OTHER ==
[~2021-06-24] MED LIST changes: -CITA10TA4 PO; +CITA10TA5 PO; +IOHEXOL 180 MG/ML 10 ML VIAL. ONE; +methylPREDNISolone ACETATE 80 MG/ML VIAL. ONE
--- NOTE | 2021-06-24 11:15 | PDOC ---
Progress Note - Pain Clinic Date of Service: DOS: DATE: 06/24/21 TIME: 11:11 Diagnosis: Dx: Cervical radiculopathy with cervical degenerative disease and cervical spinal stenosis Bilateral greater trochanteric bursitis Myofascial pain Left elbow olecranon bursitis History or Present Illness: HPI: 76-year-old female returns for follow-up status post injection of the left olecranon bursa. Patient reports about 80% improvement but the pain is still significant in the elbow and the wrist. Patient reports main complaint today however is bilateral lateral hip pain rated as a 5 on a scale of 10 is worst to an average 0 its least is a 5 today patient reports is worse with walking standing change position specially bending her leg or abduction of her lower extremity bilaterally right slightly greater than left but present bilaterally very tender with motion and changing position especially getting up from a seated position. Patient reports it wakes her from sleep about every 5 hours specially she lays on her side either right or left. Patient scribes as aching sharp dull tight shooting at times into the lateral aspect of the thighs. Patient reports no loss of motor function no bowel or bladder incontinence. Physical Exam: VS: Blood pressure is 180/105 pulse 73 respirations 18 temperature 97.5 F height 5 feet 5 inches weight is 200 pounds. PE: PHYSICAL EXAMINATION: GENERAL: The patient is awake, alert, oriented, appropriate, very pleasant in demeanor HEENT: Shows normocephalic, atraumatic. Extraocular movements are intact and symmetrical. Oral cavity: Mucous membranes moist and pink. NECK: Shows anterior throat supple without palpable lymphadenopathy noted. Swallow reflex symmetrical. CHEST: Shows normal on inspection. Breath sounds are clear bilaterally, no rales rhonchi or wheezes auscultated. HEART: Shows S1, S2 clear. No murmurs auscultated. ABDOMEN: Soft, nontender, nondistended, obese. No palpable organomegaly is noted. BACK: Shows spine grossly in the midline. Normal-appearing cervical lordotic curvature. There is slightly increased thoracic kyphosis, some minor flattening of the lumbar lordotic curvature. Lumbar paraspinous muscles show symmetrical on inspection, on palpation shows some moderate tenderness diffusely throughout the upper, middle and lower distribution of the paraspinous muscles, but without specific trigger points, without radiation of pain. The patient has good rotational motion of the lumbar spine, both laterally as well as extension and flexion without significant difficulty. No tenderness over the spinous processes, sacrum or sacroiliac regions. EXTREMITIES: Lower extremities show deep tendon reflexes 1+ in the patellar and tendo calcaneus tendons. Motor exam is 4 on a scale of 5 with right dorsiflexion, extension, quadriceps and hamstring flexion and 5/5 on the left. Peripheral pulses are 1 posterior tibial. No peripheral edema is noted bilaterally. Lower extremities are warm and dry. Patient's hip shows significant tenderness over the greater trochanters bilaterally slightly worse on the right than left but very tender even with moderate palpation with some ra diation to the lateral aspect of the lateral thigh bilaterally. With abduction patient shows significant tenderness in the bilateral trochanters again right greater than left as well. SKIN: Shows warm and dry, good turgor. No edema. No sores, rashes or bruising throughout. Procedure: Procedure: Options were discussed with the patient. Patient will chart was reviewed, her current medication regimen updated, current review of systems updated today as well. We will proceed with bilateral greater trochanteric bursa injection today with fluoroscopic guidance. Risk discussed including but not limited to bleeding infection possibility of intravascular ejection sequelae spread local anesthetic numbness side effects steroid medications post arthroscopy and portals regarding pain control. Patient understands wished to proceed. Patient will return to clinic in approximately 4 weeks for follow-up, was counseled return appointment, typical, and side effects be aware of. Medication Injected: Med Injected: Under sterile prep and drape patient in supine position using C-arm fluoroscopic guidance patient's bilateral greater trochanters were visualized. Using 25- gauge needle and 1% lidocaine area lateral to the greater trochanters were anesthetized. Using a 25-gauge needle under direct fluoroscopic visualization the greater trochanteric bursa was contacted with negative aspiration noted. 1.5 cc of contrast was then injected with good local spread at the greater trochanteric bursa without washout bilaterally. At this time, a solution containing 3 cc of 0.25% bupivacaine and 60 mg Depo-Medrol was then injected into each greater trochanteric bursa, for a total of 120 mg Depo-Medrol and 6 cc 0.25% bupivacaine. Patient tolerated the procedure well and had no complications. Condition at Discharge: Condition at Discharge: Condition at discharge is stable, patient tolerated the procedure well and had no complications. PAGE WAYNE MD Jun 24, 2021 11:15
--- NOTE | 2021-06-24 11:16 | PDOC4 ---
Procedure Note: ICD 10 Code: ICD 10 Code: M70.63 Procedure Note: Patient was consented for bilateral greater trochanteric bursa injections with fluoroscopic guidance. Risk were discussed including not limited to bleeding infection possibility of intravascular injection sequelae spread local anesthetic and numbness side effects steroid medications post arthroscopy and portals regarding pain control. Patient understands wished to proceed. Under sterile prep and drape patient in supine position using C-arm fluoroscopic guidance patient's bilateral greater trochanters were visualized. Using 25- gauge needle and 1% lidocaine area lateral to the greater trochanters were anesthetized. Using a 25-gauge needle under direct fluoroscopic visualization the greater trochanteric bursa was contacted with negative aspiration noted. 1.5 cc of contrast was then injected with good local spread at the greater trochanteric bursa without washout bilaterally. At this time, a solution containing 3 cc of 0.25% bupivacaine and 60 mg Depo-Medrol was then injected into each greater trochanteric bursa, for a total of 120 mg Depo-Medrol and 6 cc 0.25% bupivacaine. Patient tolerated the procedure well and had no complic ations. PAGE WAYNE MD Jun 24, 2021 11:16
== END | disposition home or self-care (01) ==
LOC: PNCL 10:07
PROVIDERS: ATTEND Anesthesiology
DX: M70.62 Trochanteric bursitis, left hip (principal); M70.61 Trochanteric bursitis, right hip; M50.10 Cervical disc disorder with radiculopathy, unspecified cervical region; M48.02 Spinal stenosis, cervical region; M79.18 Myalgia, other site; M70.22 Olecranon bursitis, left elbow; I10 Essential (primary) hypertension; E11.9 Type 2 diabetes mellitus without complications; F32.9 Major depressive disorder, single episode, unspecified; Z90.710 Acquired absence of both cervix and uterus; Z98.890 Other specified postprocedural states; Z79.899 Other long term (current) drug therapy; Z91.041 Radiographic dye allergy status; Z88.8 Allergy status to other drugs, medicaments and biological substances
CPT/HCPCS: 20610; 77002; J1030; J1040; J3490; Q9965

== ENCOUNTER → 2021-08-12 | Outpatient (CLI) | payer MEDICARE, OTHER ==
--- NOTE | 2021-08-12 12:55 | PDOC ---
Progress Note - Pain Clinic Date of Service: DOS: DATE: 08/12/21 TIME: 12:52 Diagnosis: Dx: Cervical radiculopathy with cervical spinal stenosis Bilateral greater trochanteric bursitis Myofascial pain Left elbow olecranon bursitis History or Present Illness: HPI: 76-year-old female returns for follow-up last seen June 24 patient did very well after greater trochanteric bursa injections with 100% improvement from most 2 months decrease pain patient reports pain returning now more on the right than the left and present bilaterally in the lateral hip worse with walking standing and changing position specially standing still or stepping to the side with the right or left lower extremity patient reports is tight in the lateral thigh as well as a shooting pain down into the area of the knee laterally on the thigh patient reports is a 3 on scale 10 is worst 3 on average 0 at its least and is a 3 today. Patient reports no loss of motor function but significant pain with ambulation especially standing patient reports no loss of motor function but significant fatigability the lower extremities when the pain is increased as well as radiation to the lateral aspect of the thighs to the knees which is more noticeable and tiring as well. Patient reports no bowel or bladder incontinenc e. Physical Exam: VS: Blood pressure is 138/80 pulse 80 respirations are 18 temperature 98.3 F height 5 feet 5 inches weight 197 pounds PE: PHYSICAL EXAMINATION: GENERAL: The patient is awake, alert, oriented, appropriate, very pleasant in demeanor HEENT: Shows normocephalic, atraumatic. Extraocular movements are intact and symmetrical. Oral cavity: Mucous membranes moist and pink. NECK: Shows anterior throat supple without palpable lymphadenopathy noted. Swallow reflex symmetrical. CHEST: Shows normal on inspection. Breath sounds are clear bilaterally, distant no rales or rhonchi. HEART: Shows S1, S2 clear. No murmurs auscultated. ABDOMEN: Soft, nontender, nondistended. No palpable organomegaly is noted. BACK: Shows spine grossly in the midline. Normal-appearing cervical lordotic curvature. Cervical paraspinous muscles show symmetrical inspection, palpation some moderate tenderness only diffusely in the inferior aspect cervical paraspinous musculature and also into the superior medial trapezius but full rotation motion cervical spine both laterally as well as full extension full forward flexion without difficulty. There is slightly increased thoracic kyphosis, some flattening of the lumbar lordotic curvature. Lumbar paraspinous muscles show symmetrical on inspection, on palpation shows some moderate tenderness diffusely throughout the upper, middle and lower distribution of the paraspinous muscles without specific trigger points, without radiation of pain. The patient has good rotational motion of the lumbar spine, both laterally as well as extension and flexion without significant difficulty. No tenderness over the spinous processes, sacrum or sacroiliac regions. EXTREMITIES: Lower extremities show deep tendon reflexes 1+ in the patellar and tendo calcaneus tendons. Motor exam is 4 on a scale of 5 with right dorsi flexion, extension, quadriceps and hamstring flexion and 5/5 on the left. Peripheral pulses are 1+ posterior tibial. No peripheral edema is noted bilaterally. Patient has significant tenderness with palpation over the greater trochanters bilaterally slightly more tender on the right than left but present bilaterally with mild radiation with deeper palpation into the lateral aspect of the thigh as well. Lower extremities are warm and dry. SKIN: Shows warm and dry, good turgor. No edema. No sores, rashes or bruising throughout. Procedure: Procedure: Options were discussed with the patient. Patient's old chart was reviewed as her current medication regimen updated current review of systems updated today as well. We will proceed with bilateral greater trochanteric bursa injections with fluoroscopic guidance. Risk were discussed including but not limited to bleeding infection possibility of intravascular injection sequelae spread local anesthetic numbness side effects steroid medication and poor results regarding pain control. Patient understands wished to proceed. Patient return to clinic in approximately 4 weeks for follow-up, was counseled as return appointment activity level and side effect to be aware of. Medication Injected: Med Injected: Under sterile prep and drape patient in supine position using C-arm fluoroscopic guidance patient's bilateral greater trochanters were visualized. Using 25- gauge needle and 1% lidocaine area lateral to the greater trochanters were anesthetized. Using a 25-gauge needle under direct fluoroscopic visualization the greater trochanteric bursa was contacted with negative aspiration noted. 1.5 cc of contrast was then injected with good local spread at the greater trochanteric bursa without washout bilaterally. At this time, a solution containing 3 cc of 0.25% bupivacaine and 60 mg Depo-Medrol was then injected into each greater trochanteric bursa, for a total of 120 mg Depo-Medrol and 6 cc 0.25% bupivacaine. Patient tolerated the procedure well and had no complications. Condition at Discharge: Condition at Discharge: Condition at discharge stable, paced tolerated procedure well and had no complications PAGE WAYNE MD Aug 12, 2021 12:55
--- NOTE | 2021-08-12 12:56 | PDOC4 ---
Procedure Note: ICD 10 Code: ICD 10 Code: M70.613 Procedure Note: Patient was consented for bilateral greater trochanteric bursa injection with fluoroscopic guidance. Risks are discussed including not limited to bleeding infection possibility of intravascular injection sequelae spread local anesthetic and numbness side effects of steroid medication and poor results regarding pain control. Patient understands wished to proceed. Under sterile prep and drape patient in supine position using C-arm fluoroscopic guidance patient's bilateral greater trochanters were visualized. Using 25- gauge needle and 1% lidocaine area lateral to the greater trochanters were anesthetized. Using a 25-gauge needle under direct fluoroscopic visualization the greater trochanteric bursa was contacted with negative aspiration noted. 1.5 cc of contrast was then injected with good local spread at the greater trochanteric bursa without washout bilaterally. At this time, a solution containing 3 cc of 0.25% bupivacaine and 60 mg Depo-Medrol was then injected into each greater trochanteric bursa, for a total of 120 mg Depo-Medrol and 6 cc 0.25% bupivacaine. Patient tolerated the procedure well and had no complications. PAGE WAYNE MD Aug 12, 2021 12:56
== END | disposition home or self-care (01) ==
LOC: PNCL 11:02
PROVIDERS: ATTEND Anesthesiology
DX: M70.22 Olecranon bursitis, left elbow (principal); M70.62 Trochanteric bursitis, left hip; M70.61 Trochanteric bursitis, right hip; M54.12 Radiculopathy, cervical region; M48.02 Spinal stenosis, cervical region; M79.18 Myalgia, other site; I10 Essential (primary) hypertension; E11.9 Type 2 diabetes mellitus without complications; M19.90 Unspecified osteoarthritis, unspecified site; F32.9 Major depressive disorder, single episode, unspecified; Z90.49 Acquired absence of other specified parts of digestive tract; Z90.710 Acquired absence of both cervix and uterus; Z98.890 Other specified postprocedural states; Z79.899 Other long term (current) drug therapy; Z91.041 Radiographic dye allergy status; Z88.8 Allergy status to other drugs, medicaments and biological substances
CPT/HCPCS: 20610; 77002; J1030; J1040; J3490; Q9965

== ENCOUNTER → 2021-11-24 | Outpatient (CLI) | payer MEDICARE, OTHER ==
[~2021-11-24] MED LIST changes: +DEXAMETHASONE PRES.FREE 10 MG/ML VIAL. ONE; -methylPREDNISolone ACETATE 40 MG/ML VIAL. ONE; -methylPREDNISolone ACETATE 80 MG/ML VIAL. ONE
--- NOTE | 2021-11-24 10:43 | PDOC ---
Progress Note - Pain Clinic Date of Service: DOS: DATE: 11/24/21 TIME: 10:37 Diagnosis: Dx: Cervical radiculopathy with cervical degenerative disease and cervical spinal stenosis Bilateral greater trochanteric bursitis Myofascial pain Left elbow olecranon bursitis History or Present Illness: HPI: 76-year-old female returns for follow-up status post bilateral greater trochanteric bursa injections August 12, 2021 patient did very well with approximate 75% improvement for almost 3 months patient reports the pain returning down the bilateral lateral hips worse with walking standing changing positions also some pain across the shoulders and neck which is almost as bad as the hips and legs patient reports the pain is an 8 on scale 10 is worse over the past week 0 to [place] 3 days average of 3 today patient ports worse with walking standing change positions better with sitting or resting patient descri bes aching and sharp in the hips tight in the upper neck and back and shoulders bilaterally. Patient reports no recent injury no falls as well. Patient reports pain is most notable with change in position getting up from seated position and with walking. Patient has some radiation to the lateral thighs only but not into the anterior aspect or the groins. 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 Physical Exam: VS: Blood pressure is 150/92 pulse 81 respirations 18 temperature 90.6 F height is 5 foot 5 inches weight is 204 pounds. PE: PHYSICAL EXAMINATION: GENERAL: The patient is awake, alert, oriented, appropriate, very pleasant in demeanor HEENT: Shows normocephalic, atraumatic. Extraocular movements are intact and symmetrical. Oral cavity: Mucous membranes moist and pink. Dentition is intact. NECK: Shows anterior throat supple without palpable lymphadenopathy noted. Swallow reflex symmetrical. CHEST: Shows normal on inspection. Breath sounds are clear bilaterally, no rales rhonchi or wheezes auscultated. HEART: Shows S1, S2 clear. No murmurs auscultated. ABDOMEN: Soft, nontender, nondistended. No palpable organomegaly is noted. No rebound or guarding demonstrated. BACK: Shows spine grossly in the midline. Normal-appearing cervical lordotic curvature. Cervical paraspinous was show symmetrical with inspection on palpation some significant tenderness in the middle and lower decrease the deya pinous muscles diffusely without significant radiation or trigger points or asymmetry. Patient shows good rotation motion cervical spine both laterally as well as extension and flexion with some moderate tenderness bilaterally but without radiation. Patient's upper back shows some moderate tenderness in the trapezius musculature as well as into the superior aspect of the thoracic paraspinous musculature again diffusely tender bilaterally. There is mildly increased thoracic kyphosis, some flattening of the lumbar lordotic curvature. Lumbar paraspinous muscles show symmetrical on inspection, on palpation shows some moderate tenderness diffusely throughout the upper, middle and lower distribution of the paraspinous muscles, but without specific trigger points, without radiation of pain. The patient has good rotational motion of the lumbar spine, both laterally as well as extension and flexion without significant difficulty. No tenderness over the spinous processes, sacrum or sacroiliac regions. EXTREMITIES: Lower extremities show deep tendon reflexes 1+ in the patellar and tendo calcaneus tendons. Motor exam is 4 on a scale of 5 with right dorsiflexion, extension, quadriceps and hamstring flexion and 5/5 on the left. Peripheral pulses are 1+ posterior tibial. No peripheral edema is noted bilaterally. Patient's hips show significant tenderness with very severe pain with even moderate palpation over the greater trochanters bilaterally with some mild radiation into the lateral aspect of the thighs bilaterally to the knees. Lower extremities are warm and dry to touch, equal in color and appearance. Upper extremities show deep tendon reflexes 2+ in the bicep tricep tendons, motor exam strong with commercial leasing agent strength rated 5 out of 5 as is bicep and tricep flexion bilaterally. Peripheral pulses are 2+ radial. SKIN: Shows warm and dry, good turgor. No edema. No sores, rashes or bruising throughout. Procedure: Procedure: Options were discussed with patient. Patient's old chart was reviewed as her current medication regimen updated current review of systems updated today as well. We will proceed with bilateral greater trochanteric bursa injections today with fluoroscopic guidance. Risks are discussed including but not limited to bleeding infection possibility of intravascular injection sequelae spread of local anesthetic numbness side effects steroid medication exposure fluoroscopy and poor results regarding pain control. Patient understands wished to proceed. Patient return to clinic in approximately 4 weeks for follow-up, was counseled as to return appointment, [employer], and side effect to be aware of. Medication Injected: Med Injected: Under sterile prep and drape patient in supine position using C-arm fluoroscopic guidance patient's bilateral greater trochanters were visualized. Using 25- gauge needle and 1% lidocaine area lateral to the greater trochanters were anesthetized. Using a 25-gauge needle under direct fluoroscopic visualization the greater trochanteric bursa was contacted with negative aspiration noted. 1.5 cc of contrast was then injected with good local spread at the greater trochanteric bursa without washout bilaterally. At this time, a solution containing 3 cc of 0.25% bupivacaine and 10 mg dexamethasone was then injected into each greater trochanteric bursa, for a total of 20 mg dexamethasone and 6 cc 0.25% bupivacaine. Patient tolerated the procedure well and had no complications. Condition at Discharge: Condition at Discharge: Condition at discharge stable, paced tolerated procedure well and had no complications. PAGE WAYNE MD Nov 24, 2021 10:43
--- NOTE | 2021-11-24 10:45 | PDOC4 ---
Procedure Note: ICD 10 Code: ICD 10 Code: M70.63 Procedure Note: Patient was consented for bilateral greater trochanteric bursa injections with fluoroscopic guidance. Risk were discussed including but not limited to bleeding infection possibility intravascular injection, and spread of local anesthetic with sequelae as well as poor results regarding pain control and exposure to fluoroscopy. Patient understands wishes to proceed. Under sterile prep and drape patient in supine position using C-arm fluoroscopic guidance patient's bilateral greater trochanters were visualized. Using 25- gauge needle and 1% lidocaine area lateral to the greater trochanters were anesthetized. Using a 25-gauge needle under direct fluoroscopic visualization the greater trochanteric bursa was contacted with negative aspiration noted. 1.5 cc of contrast was then injected with good local spread at the greater trochanteric bursa without washout bilaterally. At this time, a solution containing 3 cc of 0.25% bupivacaine and 10 mg dexamethasone was then injected into each greater trochanteric bursa, for a total of 20 mg dexamethasone and 6 cc 0.25% bupivacaine. Patient tolerated the procedure well and had no complications. PAGE WAYNE MD Nov 24, 2021 10:45
--- NOTE | 2021-11-24 10:47 | FMN ---
PT PROBLEMS Addendum to dictation November 24, 2021 Also after discussion regarding patient's neck and upper back pain will order physical therapy to start with stretching strength exercises of the upper back and neck as well as massage therapies and myofascial release. This will be arranged with our physical therapy department they will contact the patient r egarding scheduling. PAGE WAYNE MD Nov 24, 2021 10:47
== END | disposition home or self-care (01) ==
LOC: PNCL 09:03
PROVIDERS: ATTEND Anesthesiology
DX: M70.62 Trochanteric bursitis, left hip (principal); M70.61 Trochanteric bursitis, right hip; M79.18 Myalgia, other site; M70.22 Olecranon bursitis, left elbow; M50.10 Cervical disc disorder with radiculopathy, unspecified cervical region; M48.02 Spinal stenosis, cervical region; M19.90 Unspecified osteoarthritis, unspecified site; E11.9 Type 2 diabetes mellitus without complications; F32.9 Major depressive disorder, single episode, unspecified; Z90.49 Acquired absence of other specified parts of digestive tract; Z90.710 Acquired absence of both cervix and uterus; Z98.890 Other specified postprocedural states; Z79.899 Other long term (current) drug therapy; Z91.041 Radiographic dye allergy status; Z88.8 Allergy status to other drugs, medicaments and biological substances
CPT/HCPCS: 20610; 77002; J1100; J3490; Q9965